=== PATIENT | female | born 1975 | race Caucasian/White ===

== ENCOUNTER 2022-05-21 11:57 | Emergency (ER) | payer SELFPAY ==
[2022-05-21] VITALS (16 sets, daily range): BP systolic 117–141; BP diastolic 69–100; PULSE 60–79; RESP 26; TEMP 36.9; O2SAT 96–99; BMI 48.1
--- NOTE | 2022-05-21 12:40 | CRLHL7_ITS ---
For Patients: As a result of the Cures Act, medical imaging exams and procedure reports are released immediately into your electronic medical record. You may view this report before your referring provider. If you have questions, please contact your health care provider. INDICATION: Cough. COMPARISON: Chest x-ray 09/04/2019. TECHNIQUE: Upright PA and lateral views. FINDINGS: The cardiomediastinal silhouette and pulmonary vasculature are within normal limits. The lungs are clear. No pleural effusion or pneumothorax is identified. There are mild degenerative changes throughout the thoracic spine. IMPRESSION: No acute abnormality. Dictated by Toy Mancera MD @ 05/21/2022 2:13:13 PM (Electronically Signed)
--- NOTE | 2022-05-21 12:41 | ED_ITS ---
HPI - General Adult General Chief complaint: Cough Stated complaint: coughing blood Time Seen by Provider: 05/21/22 11:59 History of Present Illness HPI narrative: This 47-year-old female comes in reporting 3 weeks of cough. More recently she has noted some blood mixed in with the sputum when she is coughing. She does not report any fevers. She does arrive with normal vital signs except for increased respiratory rate at around 26 breaths per minute. She is maintaining sufficient oximetry. She did see a doctor a couple weeks ago and was told that she had a pneumonia. She received Zithromax and did not get any relief from this treatment. There was no chest x-ray that was done. Related Data Previous Rx's Medication Instructions Recorded albuterol sulfate 90 mcg/actuation 2 inh inhalation Q4-6H PRN #1 ea 05/21/22 breath activated powder inhaler Allergies Allergy/AdvReac Type Severity Reaction Status Date / Time No Known Drug Allergies Allergy Verified 05/21/22 12:11 Review of Systems Status of ROS: Reports: 10 or more systems reviewed and unremarkable except as noted in History and below Narrative: Constitutional: No fevers, no weight gain or loss. Eyes: No discharge. No vision changes. HENT: No congestion, no sore throat, no ear pain. Cardiovascular: No chest pain, no palpitations. Respiratory: Frequent productive cough sometimes with specks of blood. Gastrointestinal: No abdominal pain, no vomiting, no diarrhea. Genitourinary: No dysuria, no hematuria. Musculoskeletal: Normal range of motion. Skin: No rashes, no pruritis. Neurological: No dizziness, weakness, sensory change, speech change. Endo/Heme/Allergies: No bruising or bleeding. No polydipsia. Pysch: no suicidality, no anxiety, no insomnia. All other systems reviewed and are negative. PFSH PFSH Social History Smoking Status: Never smoker Do you use any of these nicotine containing products: None Second hand tobacco smoke exposure: No How often do you have a drink containing alcohol: monthly or less How many standard drinks containing alcohol do you have on a typical day: 1 or 2 How often do you have six or more drinks on one occasion: Never AUDIT-C Alcohol total score: 1 Non-prescribed substance use: denies use service: No Exam Narrative: Exam Narrative: Constitutional: Well-developed, well-nourished, no acute distress. HEENT: Normocephalic, atraumatic. Neck: Normal range of motion. Nontender. Supple. Heart: Regular. No murmurs. Normal rate. Intact distal pulses. Lungs: Some chest discomfort when coughing. Wheezes are heard on the right side of the lung. Abdomen: Normal bowel sounds. Nontender. No rebound tenderness. Genitalia: Deferred. Back: No midline tenderness. Normal range of motion. Extremities: Normal range of motion. No injury. Skin: Intact. No rash. Warm. No erythema or pallor. Neurologic: No altered sensation. No weakness. Alert and oriented. Psychiatric: No suicidality. No anxiety or depression. No insomnia. Nursing notes and vitals signs are reviewed. Const: Vital Signs, click to edit/add: Vital Signs - 24 hr 05/21/22 12:11 05/21/22 12:12 05/21/22 12:15 Temperature 98.4 F Pulse Rate 79 77 Pulse Rate [Pulse Oximeter] 71 Respiratory Rate 26 H Blood Pressure Blood Pressure [Ri ght Upper Arm] 141/88 H Pulse Oximetry 98 99 97 Oxygen Delivery Me thod Room Air 05/21/22 12:16 Temperature Pulse Rate 72 Pulse Rate [Pulse Oximeter] Respiratory Rate Blood Pressure 141/88 H Blood Pressure [Ri ght Upper Arm] Pulse Oximetry 97 Oxygen Delivery Me thod Course Vital Signs Vital signs: Initial Vital Signs Temperature 98.4 F 05/21/22 12:11 Temperature Source Temporal Artery Scan 05/21/22 12:11 Pulse Rate 71 05/21/22 12:11 Pulse Rhythm Regular 05/21/22 12:11 Respiratory Rate 26 H 05/21/22 12:11 Blood Pressure 141/88 H 05/21/22 12:11 Blood Pressure Mean 105 05/21/22 12:11 Blood Pressure Position Supine 05/21/22 12:11 Pulse Oximetry 98 05/21/22 12:11 Oxygen Delivery Method Room Air 05/21/22 12:11 Vital Signs Temperature 98.4 F 05/21/22 12:11 Pulse Rate 71 05/21/22 12:11 Respiratory Rate 26 H 05/21/22 12:11 Blood Pressure 141/88 H 05/21/22 12:11 Pulse Oximetry 98 05/21/22 12:11 Oxygen Delivery Method Room Air 05/21/22 12:11 Temperature 98.4 F 05/21/22 12:11 Pulse Rate 72 05/21/22 12:16 Respiratory Rate 26 H 05/21/22 12:11 Blood Pressure 141/88 H 05/21/22 12:16 Pulse Oximetry 97 05/21/22 12:16 Oxygen Delivery Method Room Air 05/21/22 12:11 Medical Decision Making MDM Narrative Medical decision making narrative: This patient comes in reporting cough and shortness of breath. She did have some wheezing initially on exam. She did receive an oral dose of dexamethasone 10 mg. Upon reexamination the wheezing has discontinued. She states that she is feeling better. Chest x-ray by my review shows no sign of pneumonia. Lab results also returned with normal findings. Her nasal swab is negative for COVID, influenza, and RSV. At the time of discharge the patient appears safe for outpatient management. The treatment plan is reviewed along with written and verbal return precautions. Reasons to return and the importance of close followup were also reviewed. She did receive a prescription for albuterol inhaler. Encouraged use of [id number] medicines also as needed and directed. Lab Data Labs: Lab Results 05/21/22 05/21/22 Range/Units 12:02 13:09 WBC 6.71 (4.50-11.00) K/uL RBC 4.51 (4.00-5.20) m/uL Hgb 13.4 (12.0-16.0) gm/dL Hct 39.7 (33.0-51.0) % MCV 88 (80-100) fL MCH 30 (26-34) pg MCHC 34 (32-36) gm/dL RDW Coeff of Hina 13.4 (11.5-15.5) % Plt Count 286 (140-440) K/uL Neut % (Auto) 54.9 (42.0-72.0) % Lymph % (Auto) 35.2 (20-44) % [place] % (Auto) 6.6 (0.0-11.0) % Eos % (Auto) 2.5 (0.0-7.0) % Baso % (Auto) 0.4 (0.0-3.0) % Neut # (Auto) 3.68 (1.7-7.0) K/uL Lymph # (Auto) 2.36 (0.90-2.90) K/uL [place] # (Auto) 0.40 (0.00-0.90) K/UL Eos # (Auto) 0.17 (0.00-0.50) K/uL Baso # (Auto) 0.03 (0.00-0.30) K/uL Sodium 140 (135-149) mmol/L Potassium 3.9 (3.6-5.1) mmol/L Chloride 109 (96-114) mmol/L Carbon Dioxide 26 (20-32) mmol/L BUN 15 (5-24) mg/dL Creatinine 0.4 L (0.5-1.5) mg/dL Estimated Creat Clear 148.53 Estimated GFR 122 ml/min Glucose 109 (60-115) mg/dL Calcium 8.6 (8.4-10.6) mg/dL SARS-CoV-2 (PCR) Negative SARS-CoV-2 (Negative) Influenza Type A (PCR) Negative PCR FLU A (Negative) Influenza Type B (PCR) Negative PCR FLU B (Negative) RSV (PCR) Negative PCR RSV (Negative) Discharge Plan Discharge Clinical Impression: Acute upper respiratory infection Patient Disposition: Home, Self-Care Condition: Improved Additional Instructions: Take medication as needed and directed. Follow up with MD or return if worsening. Prescriptions: New albuterol sulfate 90 mcg/actuation aerosol powdr breath activated 2 inh inhalation Q4-6H PRNQty: 1 0RF Follow Up/Referrals: Provider,Not a Local [Primary Care Provider] - Stand Alone Forms: [employer] Info Instructions
[2022-05-21 12:59] LABS: PCR FLU A Negative PCR FLU A (Negative); PCR FLU B Negative PCR FLU B (Negative); PCR RSV Negative PCR RSV (Negative)
[2022-05-21] MEDS: dexAMETHasone 10 MG/ML inj PO (12:59)
[2022-05-21 13:19] LABS: SARS PCR* Negative SARS-CoV-2 (Negative)
[2022-05-21 13:19] LABS: Basophils Absolute Auto 0.03 K/uL (0.00-0.30); Basophils Percent Auto 0.4 % (0.0-3.0); Eosinophils Absolute Auto 0.17 K/uL (0.00-0.50); Eosinophils Percent Auto 2.5 % (0.0-7.0); Hematocrit 39.7 % (33.0-51.0); Hemoglobin* 13.4 gm/dL (12.0-16.0); Immature Granulocytes Abs Auto 0.03 K/uL (0.00-0.30); Immature Granulocytes Pct Auto 0.4 %; Lymphocytes Absolute Auto 2.36 K/uL (0.90-2.90); Lymphocytes Percent Auto 35.2 % (20-44); Mean Corpuscular HGB Conc 34 gm/dL (32-36); Mean Corpuscular Hemoglobin 30 pg (26-34); Mean Corpuscular Volume 88 fL (80-100); Monocytes Percent Auto 6.6 % (0.0-11.0); Neutrophils Absolute Auto 3.68 K/uL (1.7-7.0); Neutrophils Percent Auto 54.9 % (42.0-72.0); Platelet Count* 286 K/uL (140-440); RDW Coefficient of Variation % 13.4 % (11.5-15.5); Red Blood Count 4.51 m/uL (4.00-5.20); White Blood Count* 6.71 K/uL (4.50-11.00)
[2022-05-21 13:28] LABS: Chloride* 109 mmol/L (96-114)
[2022-05-21 13:29] LABS: Potassium* 3.9 mmol/L (3.6-5.1); Sodium* 140 mmol/L (135-149)
[2022-05-21 13:31] LABS: Creatinine* 0.4 mg/dL (0.5-1.5); Est. Creatinine Clearance* 148.53; Estimated Glomerular Filt Rate 122 ml/min
[2022-05-21 13:32] LABS: Blood Urea Nitrogen* 15 mg/dL (5-24); Calcium* 8.6 mg/dL (8.4-10.6); Carbon Dioxide* 26 mmol/L (20-32); Glucose* 109 mg/dL (60-115)
[2022-05-21 13:36] LABS: Slide Review Reflex No
== END 2022-05-21 14:32 | disposition home or self-care (01) ==
PROVIDERS: Emergency Provider Emergency Medicine Emergency Medical Services
DX: J06.9 Acute upper respiratory infection, unspecified (principal)
CPT/HCPCS: 36415; 71046; 80048; 85025; 87631; 99283; 99284; J1100

== ENCOUNTER 2022-06-15 16:58 | Emergency (ER) | payer SELFPAY ==
[2022-06-15 17:12] VITALS: BP 156/90; PULSE 90; RESP 18; TEMP 36.3; O2SAT 98; BMI 44.6
--- NOTE | 2022-06-15 17:27 | ED.EAR ---
HPI - Ear Problem General Chief complaint: Sore Throat Stated complaint: Throat feels swollen, cough Time Seen by Provider: 06/15/22 17:06 History of Present Illness HPI Narrative: Patient is a 47-year-old woman up-to-date on her vaccinations who comes in today with bilateral ear pain and pharyngitis. She has had no fevers no chills no night sweats. She is saturating 98% on room air. She has had no sick contacts. She has been taking Tylenol Motrin as needed for pain. The symptoms been present the last 3-4 days. His no difficulty with breathing or airway issues. Patient declines strep swab. Her vital signs show elevated blood pressure. Related Data Previous Rx's Medication Instructions Recorded albuterol sulfate 90 mcg/actuation 2 inh inhalation Q4-6H PRN #1 ea 05/21/22 breath activated powder inhaler Allergies Allergy/AdvReac Type Severity Reaction Status Date / Time No Known Drug Allergies Allergy Verified 06/15/22 17:12 Review of Systems Status of ROS: Reports: 10 or more systems reviewed and unremarkable except as noted in History and below PFSH PFSH Social History Smoking Status: Never smoker Do you use any of these nicotine containing products: None Second hand tobacco smoke exposure: No How often do you have a drink containing alcohol: monthly or less How many standard drinks containing alcohol do you have on a typical day: 1 or 2 How often do you have six or more drinks on one occasion: Never AUDIT-C Alcohol total score: 1 Non-prescribed substance use: denies use service: No Exam Narrative: Exam Narrative: EXAM GENERAL: Patient appears comfortable and well. EYES: No scleral icterus. ENT: Bilateral serous otitis media noted on exam. Pharyngeal erythema with no midline shift noted tonsillar enlargement noted. THYROID: no thyroid nodules or thyromegaly. LYMPH: No supraclavicular or cervical lymphadenopathy. SKIN: Visible skin seen during exam normal or with benign process only. EXT: No dependent lower extremity pedal edema. HEART: Regular rate and rhythm with no murmurs, rubs, or gallops. LUNGS: Clear to auscultation bilaterally with no crackles or wheezes. ABD: Soft, non tender, non distended. PSYCH: Good eye contact, speech is not pressured. Const: Vital Signs, click to edit/add: Vital Signs - 24 hr 06/15/22 17:12 Temperature 97.3 F L Pulse Rate [Pulse Oximeter] 90 Respiratory Rate 18 Blood Pressure [Ri ght Upper Arm] 156/90 H Pulse Oximetry 98 Oxygen Delivery Me thod Room Air Course Course Hospital Course: Patient seen examined. Vital Signs Vital signs: Initial Vital Signs Temperature 97.3 F L 06/15/22 17:12 Temperature Source Temporal Artery Scan 06/15/22 17:12 Pulse Rate 90 06/15/22 17:12 Respiratory Rate 18 06/15/22 17:12 Blood Pressure 156/90 H 06/15/22 17:12 Blood Pressure Mean 112 H 06/15/22 17:12 Pulse Oximetry 98 06/15/22 17:12 Oxygen Delivery Method Room Air 06/15/22 17:12 Vital Signs Temperature 97.3 F L 06/15/22 17:12 Pulse Rate 90 06/15/22 17:12 Respiratory Rate 18 06/15/22 17:12 Blood Pressure 156/90 H 06/15/22 17:12 Pulse Oximetry 98 06/15/22 17:12 Oxygen Delivery Method Room Air 06/15/22 17:12 Temperature 97.3 F L 06/15/22 17:12 Pulse Rate 90 06/15/22 17:12 Respiratory Rate 18 06/15/22 17:12 Blood Pressure 156/90 H 06/15/22 17:12 Pulse Oximetry 98 06/15/22 17:12 Oxygen Delivery Method Room Air 06/15/22 17:12 Medical Decision Making MDM Narrative Medical decision making narrative: Patient is a 47-year-old woman who presents with ear pain and pharyngitis. She has obvious otitis media serous on exam. Her oropharyngeal exam shows tonsillar enlargement without shift of the midline. She has no difficulty with breathing. Rest of her exam is unremarkable. She declines rapid strep. I do think that is reasonable given her presentation this time will treat with Augmentin for the next 10 days Tylenol Motrin rest and fluids with close outpatient follow-up. Differential Diagnosis Differential Diagnosis: Otitis media strep throat peritonsillar abscess sinusitis otitis externa Discharge Plan Discharge Clinical Impression: Otitis media Patient Disposition: Home, Self-Care Condition: Stable Instructions: Ear Infection (ED) Additional Instructions: Augmentin as directed Tylenol Motrin Rest Fluids Activity Level: No Restrictions Discharge Diet: Regular Prescriptions: No Action albuterol sulfate 90 mcg/actuation aerosol powdr breath activated 2 inh inhalation Q4-6H PRNQty: 1 0RF Follow Up/Referrals: Provider,Not a Local [Primary Care Provider] - Stand Alone Forms: [facility] Info Instructions
== END 2022-06-15 18:07 | disposition home or self-care (01) ==
PROVIDERS: Emergency Provider Internal Medicine
DX: H66.93 Otitis media, unspecified, bilateral (principal)
CPT/HCPCS: 99283

== ENCOUNTER 2023-09-30 13:55 | Emergency (ER) | payer OTHER, SELFPAY ==
[2023-09-30 14:03] VITALS: BP 129/70; PULSE 73; RESP 18; TEMP 36.4; O2SAT 96
--- NOTE | 2023-09-30 14:13 | ED.GENADULT ---
HPI - General Adult General Chief complaint: Fall/Minor Trauma <Rich Barnhart MD - Last Filed: 08/11/24 09:43> Stated complaint: fell, hit head and ribs <Rich Barnhart MD - Last Filed: 08/11/24 09:43> Time Seen by Provider: 09/30/23 14:01 <Rich Barnhart MD - Last Filed: 08/11/24 09:43> History of Present Illness HPI narrative: Patient fell on Thursday while standing on tub side cleaning. Struck left side of head and left side of body. Complains of left sided rib pain and some pain in left head. 48-year-old woman presenting to the emergency department <Rich Barnhart MD - Last Filed: 08/11/24 09:43> Related Data Home medications: Previous Rx's ?Medication ?Instructions ?Recorded celecoxib 100 mg capsule 200 mg (2 x 100 mg) PO QDAY #60 02/15/24 caps celecoxib 100 mg capsule (Celebrex) 200 mg (2 x 100 mg) PO BID #60 caps 05/10/24 <Rich Barnhart MD - Last Filed: 08/11/24 09:43> Allergies/adverse reactions: Allergies Allergy/AdvReac Type Severity Reaction Status Date / Time No Known Drug Allergies Allergy Verified 03/01/24 09:15 <Rich Barnhart MD - Last Filed: 08/11/24 09:43> [facility] Surgical History: Surgical History (Updated 02/26/24 @ 10:03 by Lola Hurtado) History of section ?Z98.891 - History of uterine scar from previous surgery (ICD-10) History of bladder surgery ?Z98.890 - Other specified postprocedural states (ICD-10) Hx of appendectomy ?Z90.49 - Acquired absence of other specified parts of digestive tract (ICD-10) Hx of tonsillectomy ?Z90.89 - Acquired absence of other organs (ICD-10) <Rich Barnhart MD - Last Filed: 08/11/24 09:43> Social History: Social History Smoking Status: Never smoker Do you use any of these nicotine containing products: None Second hand tobacco smoke exposure: No How often do you have a drink containing alcohol: monthly or less How many standard drinks containing alcohol do you have on a typical day: 1 or 2 How often do you have six or more drinks on one occasion: Never AUDIT-C Alcohol total score: 1 Non-prescribed substance use: denies use service: No <Rich Barnhart MD - Last Filed: 08/11/24 09:43> Exam Const: Vital Signs, click to edit/add: Vital Signs - 24 hr 09/30/23 14:03 Temperature 97.6 F Pulse Rate [Pulse Oximeter] 73 Respiratory Rate 18 Blood Pressure [Ri ght Upper Arm] 129/70 Pulse Oximetry 96 <Rich Barnhart MD - Last Filed: 08/11/24 09:43> Vital Signs, click to edit/add: Vital Signs - 24 hr 09/30/23 14:03 Temperature 97.6 F Pulse Rate [Pulse Oximeter] 73 Respiratory Rate 18 Blood Pressure [Ri ght Upper Arm] 129/70 Pulse Oximetry 96 <Mari Crespo MD - Last Filed: 09/30/23 17:13> Course Course ED Course: As as to follow-up on the imaging of this patient. Head, cervical spine, chest abdomen pelvis CTs were unremarkable. <Mari Crespo MD - Last Filed: 09/30/23 17:13> Vital Signs Vital signs: Initial Vital Signs Temperature 97.6 F 09/30/23 14:03 Temperature Source Temporal Artery Scan 09/30/23 14:03 Pulse Rate 73 09/30/23 14:03 Respiratory Rate 18 09/30/23 14:03 Blood Pressure 129/70 09/30/23 14:03 Blood Pressure Mean 89 09/30/23 14:03 Pulse Oximetry 96 09/30/23 14:03 Vital Signs Temperature 97.6 F 09/30/23 14:03 Pulse Rate 73 09/30/23 14:03 Respiratory Rate 18 09/30/23 14:03 Blood Pressure 129/70 09/30/23 14:03 Pulse Oximetry 96 09/30/23 14:03 Temperature 97.6 F 09/30/23 14:03 Pulse Rate 73 09/30/23 14:03 Respiratory Rate 18 09/30/23 14:03 Blood Pressure 129/70 09/30/23 14:03 Pulse Oximetry 96 09/30/23 14:03 <Rich Barnhart MD - Last Filed: 08/11/24 09:43> Initial Vital Signs Temperature 97.6 F 09/30/23 14:03 Temperature Source Temporal Artery Scan 09/30/23 14:03 Pulse Rate 73 09/30/23 14:03 Respiratory Rate 18 09/30/23 14:03 Blood Pressure 129/70 09/30/23 14:03 Blood Pressure Mean 89 09/30/23 14:03 Pulse Oximetry 96 09/30/23 14:03 Vital Signs Temperature 97.6 F 09/30/23 14:03 Pulse Rate 73 09/30/23 14:03 Respiratory Rate 18 09/30/23 14:03 Blood Pressure 129/70 09/30/23 14:03 Pulse Oximetry 96 09/30/23 14:03 Temperature 97.6 F 09/30/23 14:03 Pulse Rate 73 09/30/23 14:03 Respiratory Rate 18 09/30/23 14:03 Blood Pressure 129/70 09/30/23 14:03 Pulse Oximetry 96 09/30/23 14:03 <Mari Crespo MD - Last Filed: 09/30/23 17:13> Medications Administered Medications: Discontinued Medications Generic Name Dose Route Start Last Admin Trade Name Freq PRN Reason Stop Dose Admin Morphine Sulfate 4 mg 09/30/23 14:30 09/30/23 15:15 Morphine 4 Mg/Ml Inj IVP 09/30/23 14:31 4 mg ONCE ONE Administration <Rich Barnhart MD - Last Filed: 08/11/24 09:43> Discontinued Medications Generic Name Dose Route Start Last Admin Trade Name Freq PRN Reason Stop Dose Admin Morphine Sulfate 4 mg 09/30/23 14:30 09/30/23 15:15 Morphine 4 Mg/Ml Inj IVP 09/30/23 14:31 4 mg ONCE ONE Administration <Mari Crespo MD - Last Filed: 09/30/23 17:13> Medical Decision Making Lab Data Labs: Lab Results 09/30/23 Range/Units 15:05 WBC 8.32 (4.50-11.00) K/uL RBC 4.24 (4.00-5.20) m/uL Hgb 12.6 (12.0-16.0) gm/dL Hct 38.6 (33.0-51.0) % MCV 91 (80-100) fL MCH 30 (26-34) pg MCHC 33 (32-36) gm/dL RDW Coeff of Hina 13.8 (11.5-15.5) % Plt Count 266 (140-440) K/uL Neut % (Auto) 65.2 (42.0-72.0) % Lymph % (Auto) 26.2 (20-44) % [place] % (Auto) 6.1 (0.0-11.0) % Eos % (Auto) 1.9 (0.0-7.0) % Baso % (Auto) 0.2 (0.0-3.0) % Neut # (Auto) 5.42 (1.7-7.0) K/uL Lymph # (Auto) 2.18 (0.90-2.90) K/uL [place] # (Auto) 0.50 (0.00-0.90) K/UL Eos # (Auto) 0.16 (0.00-0.50) K/uL Baso # (Auto) 0.02 (0.00-0.30) K/uL Abs Immat Gran (auto) 0.03 (0.00-0.30) K/uL Imm/Tot Granulo (auto) 0.4 % Sodium 139 (135-149) mmol/L Potassium 3.8 (3.6-5.1) mmol/L Chloride 106 (96-114) mmol/L Carbon Dioxide 27 (20-32) mmol/L Anion Gap 6 L (7-15) mEq/L BUN 14 (5-24) mg/dL Creatinine 0.4 L (0.5-1.5) mg/dL Estimated GFR 121 ml/min Glucose 149 H (60-115) mg/dL Calcium 8.8 (8.4-10.6) mg/dL Total Bilirubin 0.5 (0.1-1.5) mg/dL AST 49 H (12-35) U/L ALT 64 H (4-35) U/L Alkaline Phosphatase 74 (40-150) U/L Total Protein 6.6 (6.0-8.3) g/dL Albumin 4.0 (3.3-5.0) g/dL HCG, Qual Negative (Negative) <Rich Barnhart MD - Last Filed: 08/11/24 09:43> Lab Results 09/30/23 Range/Units 15:05 WBC 8.32 (4.50-11.00) K/uL RBC 4.24 (4.00-5.20) m/uL Hgb 12.6 (12.0-16.0) gm/dL Hct 38.6 (33.0-51.0) % MCV 91 (80-100) fL MCH 30 (26-34) pg MCHC 33 (32-36) gm/dL RDW Coeff of Hina 13.8 (11.5-15.5) % Plt Count 266 (140-440) K/uL Neut % (Auto) 65.2 (42.0-72.0) % Lymph % (Auto) 26.2 (20-44) % [place] % (Auto) 6.1 (0.0-11.0) % Eos % (Auto) 1.9 (0.0-7.0) % Baso % (Auto) 0.2 (0.0-3.0) % Neut # (Auto) 5.42 (1.7-7.0) K/uL Lymph # (Auto) 2.18 (0.90-2.90) K/uL [place] # (Auto) 0.50 (0.00-0.90) K/UL Eos # (Auto) 0.16 (0.00-0.50) K/uL Baso # (Auto) 0.02 (0.00-0.30) K/uL Abs Immat Gran (auto) 0.03 (0.00-0.30) K/uL Imm/Tot Granulo (auto) 0.4 % Sodium 139 (135-149) mmol/L Potassium 3.8 (3.6-5.1) mmol/L Chloride 106 (96-114) mmol/L Carbon Dioxide 27 (20-32) mmol/L Anion Gap 6 L (7-15) mEq/L BUN 14 (5-24) mg/dL Creatinine 0.4 L (0.5-1.5) mg/dL Estimated GFR 121 ml/min Glucose 149 H (60-115) mg/dL Calcium 8.8 (8.4-10.6) mg/dL Total Bilirubin 0.5 (0.1-1.5) mg/dL AST 49 H (12-35) U/L ALT 64 H (4-35) U/L Alkaline Phosphatase 74 (40-150) U/L Total Protein 6.6 (6.0-8.3) g/dL Albumin 4.0 (3.3-5.0) g/dL HCG, Qual Negative (Negative) <Mari Crsepo MD - Last Filed: 09/30/23 17:13> Imaging Data CT- Other: Attestation: I have reviewed the pertinent imaging results. <Mari Crespo MD - Last Filed: 09/30/23 17:13> Radiologist's impression: Noncontrast axial CT of the cervical spine with coronal and sagittal reformats are provided. Comparison: No prior studies available for comparison at this institution. Findings: The overall stature, alignment of the cervical spine is within normal limits. No fractures. No significant spinal canal stenosis or neural foraminal narrowing. Prevertebral soft tissues, cervical airway, dens and lateral masses are within normal limits. Incidental ossifications noted in the nuchal ligament at the C5 and C6 levels. Moderate opacification of the right mastoid air cells and middle ear canal. Impression: No radiographic evidence of acute osseous injury. <Mari Crespo MD - Last Filed: 09/30/23 17:13> CT scan - head: Attestation: I have reviewed the pertinent imaging results. <Mari Crespo MD - Last Filed: 09/30/23 17:13> Radiologist's impression: CT of the head without contrast. Coronal and sagittal reformats. Bone and soft tissue windows. Comparison: 09/04/2019 Findings: No acute intracranial hemorrhage or extra-axial collection. No evidence of acute cortical infarction. No mass effect or midline shift. Normal cerebral volume. The ventricles are normal in size, shape and contour. There is normal carty and white matter differentiation. Partially empty sella. The orbital contents are normal. No calvarial fractures. No lytic or sclerotic osseous lesions within the calvarium or skull base. Scalp and other imaged soft tissue structures are normal. Moderate opacification of the right mastoid air cells and right middle ear cavity. Paranasal sinuses are well aerated. Impression: 1. No acute intracranial abnormality. 2. Partially empty sella may represent a normal variant but can also be associated with idiopathic intracranial hypertension in the appropriate clinical setting. 3. Moderate opacification of the right mastoid air cells and right middle ear cavity. <Mari Crespo MD - Last Filed: 09/30/23 17:13> CT Chest/Ab/Pelvis: Attestation: I have reviewed the pertinent imaging results. <Mari Crespo MD - Last Filed: 09/30/23 17:13> Radiologist's impression: CT chest, abdomen and pelvis acquired with 95 cc of Isovue 370 IV contrast. COMPARISON: CT abdomen and pelvis with contrast 12/16/2022. FINDINGS: CHEST: Cardiovascular structures: Thoracic aorta and main pulmonary arteries are normal in caliber. Heart size is within normal limits. Mediastinum and fan: No pathologic lymphadenopathy. Lungs: No pneumothorax. Central airways are patent. Mild bibasilar scarring and atelectasis. Lungs are otherwise clear. Pleura and pericardium: No effusions. Chest wall and axilla: Unremarkable. ABDOMEN AND PELVIS: Liver: Unremarkable. Spleen: Unremarkable. Pancreas: Unremarkable. Gallbladder and bile ducts: Cholecystectomy. No biliary ductal dilatation. Kidneys: Unremarkable. Adrenal glands: Unremarkable. GI tract: No obstruction or focal inflammatory changes. Stable interparietal type fat and large bowel containing left abdominal wall hernia (axial image 114 of series 6). No free air or free fluid. Lymph nodes: No pathologic lymphadenopathy. Vascular structures: Unremarkable. Pelvic Organs: Unremarkable. Bones: No acute or suspicious osseous abnormality. IMPRESSION: No acute abnormality in the chest, abdomen or pelvis. <Mari Crespo MD - Last Filed: 09/30/23 17:13> Discharge Plan Discharge Clinical Impression: Fall, Left-sided chest wall pain <Rich Barnhart MD - Last Filed: 08/11/24 09:43> Patient Disposition: Home, Self-Care <Rich Barnhart MD - Last Filed: 08/11/24 09:43> Condition: Improved <Rich Barnhart MD - Last Filed: 08/11/24 09:43> Additional Instructions: Head, cervical spine and chest, abdomen and pelvis CT scan today were all unremarkable. No evidence of fractures noted. Take the oxycodone and Toradol for pain. You can also use Tylenol. Do not take ibuprofen or Aleve or any other NSAIDs while your taking the Toradol as the other same class of drugs. Return to emergency department for new worsening symptoms. <Rich Barnhart MD - Last Filed: 08/11/24 09:43> Prescriptions: No Action celecoxib 100 mg capsule 200 mg PO QDAY Qty: 60 5RF celecoxib [Celebrex] 100 mg capsule 200 mg PO BID Qty: 60 2RF <Rich Barnhart MD - Last Filed: 08/11/24 09:43> Follow Up/Referrals: Provider,Not a Local [Primary Care Provider] <Rich Barnhart MD - Last Filed: 08/11/24 09:43> Stand Alone Forms: [facility] Info Inst[facility] <Rich Barnhart MD - Last Filed: 08/11/24 09:43>
--- NOTE | 2023-09-30 14:30 | CRLHL7_ITS ---
For Patients: As a result of the Century Cures Act, medical imaging exams and procedure reports are released immediately into your electronic medical record. You may view this report before your referring provider. If you have questions, please contact your health care provider. INDICATION: Fall. Hit head and neck. Rib pain. TECHNIQUE: CT chest, abdomen and pelvis acquired with 95 cc of Isovue 370 IV contrast. COMPARISON: CT abdomen and pelvis with contrast 12/16/2022. FINDINGS: CHEST: Cardiovascular structures: Thoracic aorta and main pulmonary arteries are normal in caliber. Heart size is within normal limits. Mediastinum and fan: No pathologic lymphadenopathy. Lungs: No pneumothorax. Central airways are patent. Mild bibasilar scarring and atelectasis. Lungs are otherwise clear. Pleura and pericardium: No effusions. Chest wall and axilla: Unremarkable. ABDOMEN AND PELVIS: Liver: Unremarkable. Spleen: Unremarkable. Pancreas: Unremarkable. Gallbladder and bile ducts: Cholecystectomy. No biliary ductal dilatation. Kidneys: Unremarkable. Adrenal glands: Unremarkable. GI tract: No obstruction or focal inflammatory changes. Stable interparietal type fat and large bowel containing left abdominal wall hernia (axial image 114 of series 6). No free air or free fluid. Lymph nodes: No pathologic lymphadenopathy. Vascular structures: Unremarkable. Pelvic Organs: Unremarkable. Bones: No acute or suspicious osseous abnormality. IMPRESSION: No acute abnormality in the chest, abdomen or pelvis. Dictated by Michael Blackmon MD @ 09/30/2023 5:01:46 PM Please note that all CT scans at this facility use dose modulation, iterative reconstruction, and/or weight-based dosing when appropriate to reduce radiation dose to as low as reasonably achievable. Dictated by: Michael Blackmon MD @ 09/30/2023 17:02:01 (Electronically Signed)
--- NOTE | 2023-09-30 14:30 | ED.FALL ---
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 Two days ago she was standing on the edge of the bathtub trying clean some stuff on the ceiling when she tripped and fell landing on her left side onto the bathtub edge. She also states she hit her head against the ground. Since then she has been severe left-sided pain. She has taken ibuprofen at home with no improvement in symptoms. Denies any nausea, fevers, chills, lightheadedness, dizziness, weakness, numbness, chest pain, shortness of breath. Most the pain is in the left lower ribs but she does have pain throughout the left side of her ribs. Also is painful left upper quadrant. Denies any neck pain at this time. No other concerns noted. Related Data Previous Rx's ?Medication ?Instructions ?Recorded albuterol sulfate 90 mcg/actuation 2 inh inhalation Q4-6H PRN #1 ea 05/21/22 breath activated powder inhaler ketorolac 10 mg tablet 10 mg PO Q6H PRN pain #20 tabs 09/30/23 oxycodone 5 mg tablet 5 mg PO Q6H PRN pain #12 tabs 09/30/23 Allergies Allergy/AdvReac Type Severity Reaction Status Date / Time No Known Drug Allergies Allergy Verified 12/16/22 11:18 Review of Systems Status of ROS: Reports: 10 or more systems reviewed and unremarkable except as noted in History and below PFSH PFS Social History Smoking Status: Never smoker Do you use any of these nicotine containing products: None Second hand tobacco smoke exposure: No How often do you have a drink containing alcohol: monthly or less How many standard drinks containing alcohol do you have on a typical day: 1 or 2 How often do you have six or more drinks on one occasion: Never AUDIT-C Alcohol total score: 1 Non-prescribed substance use: denies use service: No Exam Narrative: Exam Narrative: Const: Well-nourished, Well-developed, in moderate distress Eyes: PERRL, no conjunctival injection, and symmetrical lids HENT: Atraumatic external nose and ears. Moist mucous membranes. Neck: Symmetric, trachea midline, No thyromegaly. CVS: RRR, No murmurs or gallops. Peripheral pulses 2+ and equal in all extremities RESP: Unlabored respiratory effort. Clear to auscultation bilaterally. GI: Left upper quadrant tenderness, Nondistended, No rebound. MSK:Extremities w/o deformity, Normal Active ROM, tenderness palpation left side of her ribs anterior and laterally but worse than the left lower ribs. No tenderness to her back or posterior ribs Skin: Warm, Dry. No rashes or lesions. Neuro: Normal Muscle tone, No focal neurological deficits. Psych: Awake, Alert, & Oriented x3. Appropriate mood and affect. Const: Vital Signs, click to edit/add: Vital Signs - 24 hr 09/30/23 14:03 Temperature 97.6 F Pulse Rate [Pulse Oximeter] 73 Respiratory Rate 18 Blood Pressure [Ri t Upper Arm] 129/70 Pulse Oximetry 96 Course Vital Signs Vital signs: Initial Vital Signs Temperature 97.6 F 09/30/23 14:03 Temperature Source Temporal Artery Scan 09/30/23 14:03 Pulse Rate 73 09/30/23 14:03 Respiratory Rate 18 09/30/23 14:03 Blood Pressure 129/70 09/30/23 14:03 Blood Pressure Mean 89 09/30/23 14:03 Pulse Oximetry 96 09/30/23 14:03 Vital Signs Temperature 97.6 F 09/30/23 14:03 Pulse Rate 73 09/30/23 14:03 Respiratory Rate 18 09/30/23 14:03 Blood Pressure 129/70 09/30/23 14:03 Pulse Oximetry 96 09/30/23 14:03 Temperature 97.6 F 09/30/23 14:03 Pulse Rate 73 09/30/23 14:03 Respiratory Rate 18 09/30/23 14:03 Blood Pressure 129/70 09/30/23 14:03 Pulse Oximetry 96 09/30/23 14:03 Medications Administered Medications: Discontinued Medications Generic Name Dose Route Start Last Admin Trade Name Freq PRN Reason Stop Dose Admin Morphine Sulfate 4 mg 09/30/23 14:30 09/30/23 15:15 Morphine 4 Mg/Ml Inj IVP 09/30/23 14:31 4 mg ONCE ONE Administration MDM - Fall MDM Narrative Medical decision making narrative: Patient is a 48-year-old female presenting for left-sided chest and abdominal pain. She is very tender to palpation at this time. Considering his left upper quadrant pain there is some concern for splenic laceration so I will order a CT scan of the chest abdomen and pelvis with IV contrast. This also look for any intrathoracic abnormalities and any rib fractures. She also states she hit her head so I will order a head CT and cervical spine CT. CBC, CMP, test all ordered. Morphine given for pain. Patient's CBC and CMP showed no concerning abnormalities. AST and ALT are slightly elevated. We are pending the CT scans at this time and patient will be signed out to my colleague Dr. Crespo for final disposition. Lab Data Labs: Lab Results 09/30/23 Range/Units 15:05 WBC 8.32 (4.50-11.00) K/uL RBC 4.24 (4.00-5.20) m/uL Hgb 12.6 (12.0-16.0) gm/dL Hct 38.6 (33.0-51.0) % MCV 91 (80-100) fL MCH 30 (26-34) pg MCHC 33 (32-36) gm/dL RDW Coeff of Hina 13.8 (11.5-15.5) % Plt Count 266 (140-440) K/uL Neut % (Auto) 65.2 (42.0-72.0) % Lymph % (Auto) 26.2 (20-44) % [place] % (Auto) 6.1 (0.0-11.0) % Eos % (Auto) 1.9 (0.0-7.0) % Baso % (Auto) 0.2 (0.0-3.0) % Neut # (Auto) 5.42 (1.7-7.0) K/uL Lymph # (Auto) 2.18 (0.90-2.90) K/uL [place] # (Auto) 0.50 (0.00-0.90) K/UL Eos # (Auto) 0.16 (0.00-0.50) K/uL Baso # (Auto) 0.02 (0.00-0.30) K/uL Abs Immat Gran (auto) 0.03 (0.00-0.30) K/uL Imm/Tot Granulo (auto) 0.4 % Sodium 139 (135-149) mmol/L Potassium 3.8 (3.6-5.1) mmol/L Chloride 106 (96-114) mmol/L Carbon Dioxide 27 (20-32) mmol/L Anion Gap 6 L (7-15) mEq/L BUN 14 (5-24) mg/dL Creatinine 0.4 L (0.5-1.5) mg/dL Estimated GFR 121 ml/min Glucose 149 H (60-115) mg/dL Calcium 8.8 (8.4-10.6) mg/dL Total Bilirubin 0.5 (0.1-1.5) mg/dL AST 49 H (12-35) U/L ALT 64 H (4-35) U/L Alkaline Phosphatase 74 (40-150) U/L Total Protein 6.6 (6.0-8.3) g/dL Albumin 4.0 (3.3-5.0) g/dL HCG, Qual Negative (Negative) Discharge Plan Discharge Clinical Impression: Fall, Left-sided chest wall pain Patient Disposition: Home, Self-Care Condition: Improved Additional Instructions: Head, cervical spine and chest, abdomen and pelvis CT scan today were all unremarkable. No evidence of fractures noted. Take the oxycodone and Toradol for pain. You can also use Tylenol. Do not take ibuprofen or Aleve or any other NSAIDs while your taking the Toradol as the other same class of drugs. Return to emergency department for new worsening symptoms. Prescriptions: New ketorolac 10 mg tablet 10 mg PO Q6H PRN (Reason: pain) Qty: 20 0RF Rx Instructions: maximum total duration of 5 days from all oral, intranasal, or parenteral formulations oxycodone 5 mg tablet 5 mg PO Q6H PRN (Reason: pain) Qty: 12 0RF No Action albuterol sulfate 90 mcg/actuation aerosol powdr breath activated 2 inh inhalation Q4-6H PRNQty: 1 0RF Follow Up/Referrals: Provider,Not a Local [Primary Care Provider] - Stand Alone Forms: MyHealth Info Instructions
--- NOTE | 2023-09-30 14:32 | CRLHL7_ITS ---
For Patients: As a result of the Century Cures Act, medical imaging exams and procedure reports are released immediately into your electronic medical record. You may view this report before your referring provider. If you have questions, please contact your health care provider. Indication: FALL, HIT HEAD AND NECK, RIB PAIN Technique: Noncontrast axial CT of the cervical spine with coronal and sagittal reformats are provided. Comparison: No prior studies available for comparison at this institution. Findings: The overall stature, alignment of the cervical spine is within normal limits. No fractures. No significant spinal canal stenosis or neural foraminal narrowing. Prevertebral soft tissues, cervical airway, dens and lateral masses are within normal limits. Incidental ossifications noted in the nuchal ligament at the C5 and C6 levels. Moderate opacification of the right mastoid air cells and middle ear canal. Impression: No radiographic evidence of acute osseous injury. Please note that all CT scans at this facility use dose modulation, iterative reconstruction, and/or weight-based dosing when appropriate to reduce radiation dose to as low as reasonably achievable. Dictated by Rich Najera MD @ 09/30/2023 4:34:25 PM (Electronically Signed)
--- NOTE | 2023-09-30 14:32 | CRLHL7_ITS ---
For Patients: As a result of the Century Cures Act, medical imaging exams and procedure reports are released immediately into your electronic medical record. You may view this report before your referring provider. If you have questions, please contact your health care provider. Indication: FALL, HIT HEAD AND NECK, RIB PAIN Technique: CT of the head without contrast. Coronal and sagittal reformats. Bone and soft tissue windows. Comparison: 09/04/2019 Findings: No acute intracranial hemorrhage or extra-axial collection. No evidence of acute cortical infarction. No mass effect or midline shift. Normal cerebral volume. The ventricles are normal in size, shape and contour. There is normal carty and white matter differentiation. Partially empty sella. The orbital contents are normal. No calvarial fractures. No lytic or sclerotic osseous lesions within the calvarium or skull base. Scalp and other imaged soft tissue structures are normal. Moderate opacification of the right mastoid air cells and right middle ear cavity. Paranasal sinuses are well aerated. Impression: 1. No acute intracranial abnormality. 2. Partially empty sella may represent a normal variant but can also be associated with idiopathic intracranial hypertension in the appropriate clinical setting. 3. Moderate opacification of the right mastoid air cells and right middle ear cavity. Please note that all CT scans at this facility use dose modulation, iterative reconstruction, and/or weight-based dosing when appropriate to reduce radiation dose to as low as reasonably achievable. Dictated by Rich Najera MD @ 09/30/2023 4:31:26 PM (Electronically Signed)
[2023-09-30] MEDS: MORPHINE 4 MG/ML INJ IVP (15:15)
--- OUTSIDE RECORDS SUMMARY | 2023-09-30 15:18 | XMS_ITS | Data Portability ---
Author Organization [facility] OFF[facility] Address [address] [place] [address] [place] [address] Assessment No assessment recorded. Plan of Treatment Reminders Order Date Submit Date Provider Last Modified By Organization Details Last Modified Time Details Appointments None recorde d. Lab bacteri al vaginos is + vaginit is panel, vaginal 2022 023 MADELYN Not available 3 15:10:31 HbA1c (hemogl obin A1c), blood 2022 023 MADELYN Not available 3 16:23:40 lipid panel, serum 2022 023 MADELYN Not available 3 16:23:40 TSH, serum or plasma 2022 023 MADELYN Not available 3 16:23:41 fecal occult blood, stool 2022 023 [email or web address] Not available 3 17:05:32 CBC w/ auto diff 2022 023 MADELYN Not available 3 16:23:41 CMP, serum or plasma 2022 023 MADELYN Not available 3 13:25:02 culture , wound 2022 023 [email or web address] Not available 3 18:09:27 culture , aerobic + anaerob ic 2022 023 [email or web address] Not available 3 09:42:15 culture + sensiti vity, unspeci fied specime n 2022 023 [email or web address] Not available 3 09:42:39 BMP, blood 2022 023 MADELYN Not available 15:11:17 BMP, serum or plasma 2022 MADELYN Not available 12:39:15 Referral None recorde d. Procedures None recorde d. Surgeries None recorde d. Imaging MAMMO, screeni ng, bilater al 2022 023 [email or web address] Not available 17:38:52 CT, abdomen + pelvis, w/ contras t 2022 [email or web address] Not available 19:28:15 Medication Orders Zithrom ax Z-Kennedy 250 mg tablet [address], [address], 16:34:26 sulfame thoxazo le 800 mg-trim ethopri m 160 mg tablet [address], [address], 19:02:36 flucona zole 150 mg tablet 2022 023 [facility] [address] [place], [address], 10:56:59 doxycyc line hyclate 100 mg capsule [address], [address], 18:33:53 amoxici llin 500 mg capsule [address], [address], 11:13:45 Patient TargetsNo targets recorded. Patient Instructions Encounter Date Encounter Id Patient Instructions Last Modified By Organization Details Last Modified Time 04/28/2022 [id number] add a cough syrup, call if not better curry Not available 04/29/2022 11:04:53 needs DARIO curry Not available 04/29 11:05:06 12/08/2022 [id number] Start amoxicllin 500 mg 3 times a day for 10 days, abdominal/pelvis CT for the bleeding and left side abdominal pain. Follow up after studies completed to discuss results. [email or web address] Not available 12/08/2022 15:59:25 Reason for Referral None Reported. Results Created Date Observation Date Name Description Value Unit Range Abnormal Flag LastModifiedBy Organization Detail LastModifiedTime 07/25/1907/24/2022 CBC w/ auto diff creatinine 0.69 Not Available Not Available 0 07/28/2022 16:23:41 07/25/19 23 07/24/2022 CBC w/ auto diff ALT 57 high Not Available Not Available 07/17 16:23:41 07/25/19 23 07/24/2022 CBC w/ auto diff A1C hemoglobin 6.0 Not Available Not Available 0 07/28/2022 16:23:41 07/25/19 23 07/24/2022 CBC w/ auto diff total cholesterol 144 Not Available Not Available 07/28/2022 16:23:41 07/25/19 23 07/24/2022 CBC w/ auto diff triglyceride s 100 Not Available Not Available 16:23:41 07/25/19 23 07/24/2022 CBC w/ auto diff HDL 44 Not Available Not Available 07/17 16:23:41 07/25/19 23 07/24/2022 CBC w/ auto diff LDL 80 Not Available Not Available 07/17 16:23:41 07/25/19 23 07/24/2022 CBC w/ auto diff TSH value 1.07 Not Available Not Available 16:23:41 07/25/19 23 07/24/2022 CBC w/ auto diff white blood count 7.8 Not Available Not Available 16:23:41 07/25/19 23 07/24/2022 CBC w/ auto diff hemoglobin 12.5 Not Available Not Available 0 07/28/2022 16:23:41 07/25/19 23 07/24/2022 CBC w/ auto diff platelet count 274 Not Available Not Available 16:23:41 07/25/19 23 07/24/2022 TSH, serum or plasm a creatinine 0.69 Not Available Not Available 0 07/28/2022 16:23:41 07/25/19 23 07/24/2022 TSH, serum or plasm a ALT 57 high Not Available Not Available 07/17 16:23:41 07/25/19 23 07/24/2022 TSH, serum or plasm a A1C hemoglobin 6.0 Not Available Not Available 0 07/28/2022 16:23:41 07/25/19 23 07/24/2022 TSH, serum or plasm a total cholesterol 144 Not Available Not Available 07/28/2022 16:23:41 07/25/19 23 07/24/2022 TSH, serum or plasm a triglyceride s 100 Not Available Not Available 16:23:41 07/25/19 23 07/24/2022 TSH, serum or plasm a HDL 44 Not Available Not Available 07/17 16:23:41 07/25/19 23 07/24/2022 TSH, serum or plasm a LDL 80 Not Available Not Available 07/17 16:23:41 07/25/19 23 07/24/2022 TSH, serum or plasm a TSH value 1.07 Not Available Not Available 16:23:41 07/25/19 23 07/24/2022 TSH, serum or plasm a white blood count 7.8 Not Available Not Available 16:23:41 07/25/19 23 07/24/2022 TSH, serum or plasm a hemoglobin 12.5 Not Available Not Available 0 07/28/2022 16:23:41 07/25/19 23 07/24/2022 TSH, serum or plasm a platelet count 274 Not Available Not Available 16:23:41 07/25/19 23 07/24/2022 lipid panel , serum creatinine 0.69 Not Available Not Available 0 07/28/2022 16:23:40 07/25/19 23 07/24/2022 lipid panel , serum ALT 57 high Not Available Not Available 07/17 16:23:40 07/25/19 23 07/24/2022 lipid panel , serum A1C hemoglobin 6.0 Not Available Not Available 0 07/28/2022 16:23:40 07/25/19 23 07/24/2022 lipid panel , serum total cholesterol 144 Not Available Not Available 07/28/2022 16:23:40 07/25/19 23 07/24/2022 lipid panel , serum triglyceride s 100 Not Available Not Available 16:23:40 07/25/19 23 07/24/2022 lipid panel , serum HDL 44 Not Available Not Available 07/17 16:23:40 07/25/19 23 07/24/2022 lipid panel , serum LDL 80 Not Available Not Available 07/17 16:23:40 07/25/19 23 07/24/2022 lipid panel , serum TSH value 1.07 Not Available Not Available 16:23:40 07/25/19 23 07/24/2022 lipid panel , serum white blood count 7.8 Not Available Not Available 16:23:40 07/25/19 23 07/24/2022 lipid panel , serum hemoglobin 12.5 Not Available Not Available 0 07/28/2022 16:23:40 07/25/19 23 07/24/2022 lipid panel , serum platelet count 274 Not Available Not Available 16:23:40 07/25/19 23 07/24/2022 HbA1c (hemo globi n A1c), blood creatinine 0.69 Not Available Not Available 0 07/28/2022 16:23:40 07/25/19 23 07/24/2022 HbA1c (hemo globi n A1c), blood ALT 57 high Not Available Not Available 07/17 16:23:40 07/25/19 23 07/24/2022 HbA1c (hemo globi n A1c), blood A1C hemoglobin 6.0 Not Available Not Available 0 07/28/2022 16:23:40 07/25/19 23 07/24/2022 HbA1c (hemo globi n A1c), blood total cholesterol 144 Not Available Not Available 07/28/2022 16:23:40 07/25/19 23 07/24/2022 HbA1c (hemo globi n A1c), blood triglyceride s 100 Not Available Not Available 16:23:40 07/25/19 23 07/24/2022 HbA1c (hemo globi n A1c), blood HDL 44 Not Available Not Available 07/17 16:23:40 07/25/19 23 07/24/2022 HbA1c (hemo globi n A1c), blood LDL 80 Not Available Not Available 07/17 16:23:40 07/25/19 23 07/24/2022 HbA1c (hemo globi n A1c), blood TSH value 1.07 Not Available Not Available 16:23:40 07/25/19 23 07/24/2022 HbA1c (hemo globi n A1c), blood white blood count 7.8 Not Available Not Available 16:23:40 07/25/19 23 07/24/2022 HbA1c (hemo globi n A1c), blood hemoglobin 12.5 Not Available Not Available 0 07/28/2022 16:23:40 07/25/19 23 07/24/2022 HbA1c (hemo globi n A1c), blood platelet count 274 Not Available Not Available 16:23:40 07/25/19 23 07/24/2022 CMP, serum or plasm a creatinine 0.69 Not Available Not Available 0 07/25/2022 13:15:47 07/25/19 23 07/24/2022 CMP, serum or plasm a ALT 57 high Not Available Not Available 10/2022 13:15:47 07/25/19 23 07/24/2022 CMP, serum or plasm a A1C hemoglobin 6.0 Not Available Not Available 0 07/25/2022 13:15:47 07/25/19 23 07/24/2022 CMP, serum or plasm a total cholesterol 144 Not Available Not Available 07/25/2022 13:15:47 07/25/19 23 07/24/2022 CMP, serum or plasm a triglyceride s 100 Not Available Not Available 13:15:47 07/25/19 23 07/24/2022 CMP, serum or plasm a HDL 44 Not Available Not Available 10/2022 13:15:47 07/25/19 23 07/24/2022 CMP, serum or plasm a LDL 80 Not Available Not Available 10/2022 13:15:47 07/25/19 23 07/24/2022 CMP, serum or plasm a TSH value 1.07 Not Available Not Available 13:15:47 07/25/19 23 07/24/2022 CMP, serum or plasm a white blood count 7.8 Not Available Not Available 13:15:47 07/25/19 23 07/24/2022 CMP, serum or plasm a hemoglobin 12.5 Not Available Not Available 0 07/25/2022 13:15:47 07/25/19 23 07/24/2022 CMP, serum or plasm a platelet count 274 Not Available Not Available 13:15:47 12/17/19 23 12/16/2022 CT, abdom en + pelvi s, w/ contr ast No observ ation record ed. [email or web address] [facility] [address] [place], [address], 12/18/2022 13:28:02 Result Notes None recorded. Problems Name Status Onset Date Resolution Date Notes Provider Name and Address Organization Details Recorded Time Obesity Active 3 Doyle Zavala MD [address] [place], [address], [employer] 04/29/2022 11:00:43 Asthma Active 3 Tiffany Jacobson NP [address] [place], [address], [facility] 08/18/2022 16:11:50 Notes:Problem: Depressive di sorder Status: Non-Chronic Problem Notes None recorded. Procedures Surgical History None recorded. Imaging Results Imaging Date Name Status LastModified by Organiz ation Details LastModified Time 12/16/2022 CT, abdomen + pelvis, w/ contrast completed [email or web address] [facility] [address] [place], [address], 12/18/2022 13:28:02 Procedure Notes None recorded. Medical Equipment None Reported. Allergies No known drug allergies Medications Name Sig Start Date Stop Date Status Note LastModified by Organization Details LastModified Time amoxicillin 500 mg capsule Take 1 capsule every 8 hours by oral route. 2022 active Not Available Not Available Not Avai lable doxycycline hyclate 100 mg capsule TAKE ONE CAPSULE BY MOUTH TWICE A DAY active Not Available Not Available No t Available cetirizine 10 mg tablet TAKE 1 TABLET EVERY DAY BY ORAL ROUTE. 03/25 completed Not Available Not Available Not Available azithromyci n 250 mg tablet TAKE 2 TABLETS (500 MG) BY MOUTH ONCE DAILY FOR 1 DAY THEN 1 TABLET (250 MG) BY MOUTH ONCE DAILY FOR 4 DAYS active Not Available Not Available No t Available fluconazole 150 mg tablet TAKE ONE TABLET BY MOUTH DIRECTED active Not Available Not Available No t Available sulfamethox azole 800 mg-trimetho prim 160 mg tablet TAKE 1 TABLET BY MOUTH EVERY 12 HOURS active Not Available Not Available No t Available gentamicin 0.3 % eye drops INSTILL 1 DROP INTO AFFECTED EYE(S) EVERY FOUR HOURS DIRECTED 08/28 completed Not Available Not Available Not Available neomycin-po lymyxin-dex ameth 3.5 mg/mL-10,00 0 unit/mL-0.1 % eye drops INSTILL 4 DROPS IN AFFECTED EAR(S) THREE TIMES DAILY DIRECTED 04/29 completed Not Available Not Available Not Available albuterol sulfate HFA 90 mcg/actuati on aerosol inhaler INHALE 2 PUFFS BY MOUTH EVERY 4 TO 6 HOURS NEEDED active Not Available Not Available No t Available Cortisporin -TC 3.3 mg-3 mg-10 mg-0.5 mg/mL ear drops,suspe nsion Instill 4 drops by otic route. 04/29 completed Not Available Not Available Not Available neomycin 3.5 mg-polymyxi n 10,000 unit-hydroc ort 10 mg/mL eye drop,susp INSTILL 4 DROPS IN AFFECTED EAR TWICE A DAY FOR 7 DAYS 03/25 completed Not Available Not Available Not Available naproxen 500 mg tablet TAKE 1 TABLET BY MOUTH TWICE A DAY 03/25 completed Not Available Not Available Not Available amoxicillin 500 mg-potassiu m clavulanate 125 mg tablet 08/28 completed Not Available Not Available Not Available neomycin-po lymyxin-hyd rocort 3.5 mg-10,000 unit/mL-1 % ear drops,susp INSTILL 4 DROPS INTO AFFECTED EAR(S) 3 TIMES PER DAY active Not Available Not Available No t Available Ciprodex 0.3 %-0.1 % ear drops,suspe nsion INSTILL 4 DROPS INTO AFFECTED EAR(S) BY OTIC ROUTE 2 TIMES PER DAY FOR 7 DAYS 10/09 completed Not Available Not Available Not Available ID NOW COVID-19 Test Kit DIRECTED active Not Available Not Available No t Available Vitals Date Recorded Body weight Body temperature Systolic blood pressure Diastolic blood pressure Provider Name and Address Organization Details Last Updated DateTime 04/28/2022 556290.6 4 g 98.5 [degF] 134 mm[Hg] 74 mm[Hg] Doyle Zavala MD [address] [place], [address] , [facility] [employer] [facility] 3 16:34:24 Date Recorded Body height Body mass index (BMI) Body weight Heart rate Systolic blood pressure Diastolic blood pressure Provider Name and Address Organization Details Last Updated DateTime 3 162.56 cm 48.2 kg/m2 819949. 02 g 84 /min 129 mm[Hg] 82 mm[Hg] ELVER FERNANDEZ- [address] [place], [address], [facility] [employer] [facility] 3 15:56:35 Date Recorded Body height Body mass index (BMI) Body weight Body temperature Heart rate Respiratory rate Oxygen saturation Oxygen saturation in Arterial blood by Pulse oximetry Systolic blood pressure Diastolic blood pressure Provider Name and Address Organization Details Last Updated DateTime 3 162.56 cm 48.6 kg/m2 291640. 64 g 97.6 [degF] 84 /min 22 /min 99 % 99 % 137 mm[Hg] 86 mm[Hg] Beverley Quarles [facility] [employer] 3 15:34:51 Social History None recorded. Functional Status None recorded. Mental Status None recorded. Family History Nothing Reported. Medical History No medical history recorded. Gynecological HistoryNo gynecological history recorded. Obstetrics History GPAL:G 0 P 0 0 0 0 Immunizations Vaccine Type Date Status Provider Name and Address Organization Details Recorded Time COVID-19, mRNA, LNP-S, PF, 30 mcg/0.3 mL dose, alma-sucrose 03/27/2021 completed BLANK COCHRAN [address] [place], [address], [facility] 03/27/2021 16:54:05 Past Encounters Encounter ID Performer Location Encounter Start Date Encounter Closed Date Diagnosis/Indication Diagnosis SNOMED-CT Code [id number] Doyle Zavala MD [facility] [address] [place] [phone] 01/10/2020 17:36:43 01/10/2020 19:33:40 Otitis externa 8543920 [id number] Chandler Herrera MD [facility] [address] [place] [address] 08/01/2020 19:05:32 08/01/2020 20:04:06 Allergic conjunctivitis 346527087 Otitis externa 9821444 [id number] Doyle Zavala MD [facility] [address] [place] [phone] 08/28/2020 17:22:12 08/28/2020 19:41:52 Otitis externa [id number] [id number] Doyle Zavala MD [facility] [address] [place] [id number] 09/04/2020 17:28:11 09/04/2020 17:47:44 Acute otitis media 9680309 [id number] Doyle Zavala MD [facility] [address] [place] [id number] 10/09/2020 18:30:25 10/09/2020 18:58:29 Perforation of tympanic membrane 49865336 [facility] [id number] Doyle Zavala MD [facility] [address] [place] [id number] 02/19/2021 17:06:31 02/19/2021 17:36:21 Otitis externa [id number] Doyle Zavala MD [facility] [address] [place] [address] 03/25/2021 15:02:58 03/25/2021 15:28:19 Hearing loss [id number] [id number] BLANK COCHRAN [facility] [address] [place] [id number] 03/27/2021 16:40:13 03/28/2021 11:00:09 Administration of SARS-CoV-2 mRNA vaccine 6820073914 [id number] Doyle Zavala MD [facility] [address] [place] [address] 05/14/2021 19:54:49 05/14/2021 19:58:45 Otitis externa [id number] Doyle Zavala MD [facility] [address] [place] [id number] 04/28/2022 16:04:22 04/28/2022 16:37:59 Cough [id number] [facility] [address] [place] [id number] 07/01/2022 14:51:27 07/01/2022 16:17:23 Adult health examination 380326299 Gynecologi c examination 41260907 Otitis externa 4683700 Screening mammography 24 334580 Vaginitis 13373599 Screening for malignant neoplasm of colon 952835762 Abscess of skin and/or subcutaneous tissue 91375164 [id number] [facility] [address] [place] [phone] 07/08/2022 09:27:49 07/08/2022 11:05:26 Candidiasis of vagina 30530974 Otitis externa 3536764 Abscess of skin and/or subcutaneous tissue 80822995 [id number] [facility] [address] [place] [phone] 07/15/2022 17:15:02 07/15/2022 18:01:53 Abscess of skin and/or subcutaneous tissue 11871709 [id number] ANTOINETTE BARKSDALE MD [facility] [address] [place] [id number] 12/08/2022 15:19:35 12/08/2022 16:03:22 Excessive menstruation with irregular cycle 101241707 Abnormal u terine bleeding 8805249721750 0 Left lower quadrant pain 064996567 Acute righ t otitis media 756041987 Health Concerns Section Related Observation LastModified by Organization Detai ls LastModified Time None Recorded Concern Status LastModified by Organization Details LastModified Time None Recorded Advance Directives Directive None Recorded Payers Encounter Date Sequence Insurance Name Policy Number Policy Dumont Covered Member ID Dumont Member ID Guarantor Name 04/28/2022 SLIDING FEE SCHEDULE - DISCOUNT Sheeba Moore 07/01/2022 [facility] SCREENING [employer]GRAM - [place] [employer] OF [employer] Sheeba Moore [id number] Sheeba Moore 07/08/2022 SLIDING FEE SCHEDULE - DISCOUNT Sheeba Moore 07/15/2022 SLIDING FEE SCHEDULE - DISCOUNT Sheeba Moore 12/08/2022 SLIDING FEE SCHEDULE - DISCOUNT Sheeba Moore Notes Date Note Type Note Provider Name and Address Organization Details Recorded Time 07/01/2022 text/html HPI Notes: Pt presents for [facility] visit, right ear pain, and pain on her bottom. Right ear pain xfor years. +drainage 3 weeks ago. A week ago also had. yellow draining. Also had sob and was seen at [facility]. She had PFTs performed and said she was diagnosed with asthma. She received a albuterol inhaler and she takes this 2-3x/week as she is fearful she will get addicted to it but when specifically asked, she stated she would not use it more if she was not fearful of this. Has been trying to exercise more post-COVID. 47y.o. F presents for [facility] breast health visit Last mammogram date and result: 2-3 years ago Personal history of breast issues or concerns: Lump under right arm axilla Current Breast ROS: denies nipple discharge/itching, rash, change in appearance Family history of breast or ovarian cancer: No Breast self awareness discussed Last pap date/result: 2-3 years ago History of abnormal pap smears: No Gynecologic history: -3 vaginal; 1 casarean LMP: Now Characteristics of period (eg heavy), duration, and frequency: Gynecologic ROS: denies vaginal discharge, itching, odor, irritation, pelvic pain, abnormal bleeding: Has LISSY nixon, ANP-BC [address] [place], [address], [place] [employer] 07/02/2022 11:25:21 07/08/2022 text/html HPI Notes: Too leung called pt with TV interpreting to discuss lab results and f/u on general status. No PFT results ever located in [facility] or [facility]. Overall, she is feeling better. No pain or fluid in her ear anymore. The lesion on her bottom burst and daughter drained most of fluid out. She did not have any side effects to medications. DWIGHT FERNANDEZ [address] [place], [address], [facility] [employer] 07/08/2022 10:46:16 07/15/2022 text/html HPI Notes: Pt presents accompanied by daughters due to worsened abscess under arm. It is quite painful. DWIGHT FERNANDEZ [address] [place], [address], [facility] 07/16/2022 09:09:20 12/08/2022 text/html HPI Notes: Abnor mal Bleeding Reported by patient. Notes: Patient presents with 6 months of heavy and irregular bleeding. Patient never had any time where she was not having regular menstrual bleeding but now she has had bleeding every 2 weeks and it is often very heavy. Her stomach feels bloated and pain is primarily in the left side of the abdomen. She has noticed some increased swelling in the left leg with pain radiating into the left lower back. Patient denies any concerns about . She is not having any fevers. She denies any pain or blood with bowel movements. No blood in her urine. Patient has no history of dysuria or previous urinary tract problems. Patient notes that the pain sometimes gets so severe she has to stop walking and catch her breath. The pain does go into the top part of the leg but has had more pain in the pelvis area for the last 2 days. Ear Pain Brief HPI Reported by patient. Location: right Onset/Timing: started 2years ago; constant pain Quality: shooting pain Severity: no fever Context: no recent URI; no recent trauma Alleviating factors: nothing gives relief Associated Symptoms: no vertigo; no discharge from ear ANTOINETTE BARKSDALE MD [address] [place], [address], [place] - [employer] 12/08/2022 23:40:13 OBGyn Episode No OBEpisode recorded.
--- OUTSIDE RECORDS SUMMARY | 2023-09-30 15:18 | XMS_ITS | Clinical Summary ---
Author Organization [employer] [facility] Address [place], [place] [address] Care Team Providers Care Florist Supplies Salesperson Name Role Phone Reinier Linda MD Primary Care Provider Unavaila ble Allergies No known active allergies Medications Medication Sig Dispensed Refills Start Date End Date Status tobramycin-dexamethas one (TOBRADEX) ophthalmic solution 2 Drops. Two drops to right ear BID X 14 days supply 1 Bottle 0 10/15/2010 Active sertraline (ZOLOFT) 100 mg tablet Take 1/2 tablet daily for 7 days then 1 tablet daily. 30 tablet 1 08/19/2011 Active Active Problems Problem Noted Date Diagnosed Date Hepatitis 03/05/2010 Vitamin D deficiency 02/07/2010 GERD (gastroesophageal reflux disease) 0 Major depression, recurrent 03/23/2009 Resolved Problems Problem Noted Date Diagnosed Date Resolved Date Dysthymic disorder 0 Overview: depression Immunizations Name Administration Dates Next Due Influenza, IIV3 (Age >=3 years) 01/30/2010,02/13 Td (Age >=7 Years) 04/07/1996 Tdap 01/30/2010 Family History Medical History Relation Name Comments Hypertension Mother Other Sister tuberculosis Relation Name Status Comments Mother Sister Social History Tobacco Use Types Packs/Day Years Used Date Smoking Tobacco: Never Smokeless Tobacco: Never Alcohol Use Standard Drinks/Week Comments No 0 (1 standard drink = 0.6 oz pur e alcohol) Social Connections Answer Date Recorded Frequency of Communication with Friends and Fami ly Not on file 02/16/2021 Financial Resource Strain Answer Date R ecorded Difficulty of Paying Living Expenses Not on file 02/16/2021 Difficulty of Paying Living Expenses Not on file 02/16/2021 Sex and Gender Information Value Date Recorded Sex Assigned at Not on file Gender Identity Not on file Sexual Orientation Not on file Obstetrics History Para Term AB IAB SAB Ectopic Multiple Livin g Live Births 5 4 4 1 1 3 Date Outcome GA Total Labor Labor/2nd/3rd Weight Sex Type Anes PTL Keeley A1 A5 Name Clin SAB Term Term Term Term Last Filed Vital Signs Vital Sign Reading Time Taken Comments Blood Pressure 126/83 08/19/2011 1:54 PM CDT Pulse 67 08/19/2011 1:54 PM CDT Temperature 36.9 ??C (98.5 ??F) 10/15/2010 11:33 AM C DT Respiratory Rate 12 01/23/2010 3:13 PM MILK INSPECTOR Oxygen Saturation 98% 01/15/2010 1:31 PM MILK INSPECTOR Inhaled Oxygen Concentration - - Weight 107.5 kg (237 lb) 03/06/2010 1:10 PM MILK INSPECTOR Height 161.3 cm (5' 3.5) 01/30/2010 1:39 PM MILK INSPECTOR Body Mass Index 41.32 01/30/2010 1:39 PM MILK INSPECTOR Plan of Treatment Health Maintenance Due Date Last Done Comments Depression screening for age 12+ 1986 HIV for age 15-65 1989 BMI (ht and wt on same day) for age 18+ 1992 Hepatitis C screening for ag e 18-79 1992 Pap test for age 21-65 01/30/2013 0, 10/08/2005 Colonoscopy through age 75 2019 Mammogram for age 45-75 2019 Tetanus booster 01/31/2020 01/30/2010, 04/07/1996 COVID-19 vaccine series ( season) 2022 Influenza for age 9-49 10/18/2023 0, 02/13/2006 Lipids for age 45-75 07/25/2027 07/24/2022 Tdap Completed 01/30/2010 Pneumococcal series for age 6-64 Aged Out No longer eligible b ased on patient's age to complete this topic Procedures Procedure Name Priority Date/Time Associated Diagnosis Comments LIPID PANEL Routine 07/24/2022 2:10 PM CDT SENIOR TECHNICAL RECRUITER THIN PREP PAP SCREEN IMAGED Routine 01/30/2010 3:47 PM MILK INSPECTOR Screening for malignant neoplasm of the cervix from Last 3 Months or Most Recently Relevant to Health Maintenance Results * LIPID PANEL (07/24/2022 2:10 PM CDT) CHOLESTEROL,TOTAL 144 100 - 199 mg/dL 07/25/2022 11:18 AM T [facility] TRIGLYCERIDES 100 <150 mg/dL 07/25/2022 11:18 AM CDT [facility] HDL CHOLESTEROL 44 >40 mg/dL 11:18 AM CDT [facility] NON-HDL CHOLESTEROL 100 <145 mg/dl 07/25/2022 11:18 AM T [facility] CHOL/HDL RATIO 3.27 <4.50 07/25/2022 11:18 AM T [facility] LDL CHOLESTEROL 80 <=130 mg/dL 07/25/2022 11:18 AM [facility] VLDL CHOLESTEROL 20 <=30 mg/dL 07/25/2022 11:18 AM T [facility] PROVIDER ORDERED STATUS RANDOM 07/25/2022 11:18 AM T [facility] Blood BLOOD SPECIMEN / Unknown 07/24/2022 2:10 PM CDT 07/25/2022 10:53 AM CDT Mariann Crowder NP CHEMISTRY [facility] [address] [place] [address] * pap screen (01/30/2010 3:47 PM MILK INSPECTOR) CYTOLOGY CYTOPATHOLOGY REPORT [facility] Status: Final Status ?[id number] CLINICAL INFORMATION Last Date of LMP ? :last week Last Pap Date ?:2006 Last Pap Result ?:NIL ABN [place]/Bx Past 5 YRS :None Hormone Usage ?:None Menstrual Status ? :Irregular Periods [place]/Bx done today ? :No Additional Information :None given HPV Request ?:HPV if ASCUS SPECIMEN SOURCE ?:Cervical/vagina l ThinPrep Vial, screening SPECIMEN ADEQUACY ?:Satisfactory for evaluation Endocervical component ? present. INTERPRETATION/RES ULT Negative for intraepithelial lesion or malignancy (NIL) Cytology 1st Screener ??:tll Signed by ?:tll This specimen was screened by the FDA approved ThinPrep Imaging System and manually reviewed. NOTE: ??The Pap test is a screening technique, not a diagnostic procedure. ??It is used ??primarily to screen for squamous cancers and precursor lesions. ??Published studies have shown that it is subject to both false negative and false positive results. ??The pap test should not be used as the sole means to diagnose or exclude pre-malignant and malignant lesions. COLLECTED:01/30/10 ? ACCESSIONED: ??01/31/10 ?? SIGNED: ??02/07/10 [facility] PAP [place] CODE NIL [facility] Cervical/Vaginal (Cervical/Vagina l) 01/30/2010 3:47 PM MILK INSPECTOR 01/30/2010 3:46 PM MILK INSPECTOR Mona HUANG PATHOLOGY/CYTOLOGY [facility] INTERNAL ZIP [phone] [address] from Last 3 Months or Most Recently Relevant to Health Maintenance Care Teams Florist Supplies Salesperson Relationship Specialty Start Date End Date Reinier Linda MD PCP - General Family Practice 11/23/14
[2023-09-30 15:25] LABS: Basophils Absolute Auto 0.02 K/uL (0.00-0.30); Basophils Percent Auto 0.2 % (0.0-3.0); Eosinophils Absolute Auto 0.16 K/uL (0.00-0.50); Eosinophils Percent Auto 1.9 % (0.0-7.0); Hematocrit 38.6 % (33.0-51.0); Hemoglobin* 12.6 gm/dL (12.0-16.0); Immature Granulocytes Abs Auto 0.03 K/uL (0.00-0.30); Immature Granulocytes Pct Auto 0.4 %; Lymphocytes Absolute Auto 2.18 K/uL (0.90-2.90); Lymphocytes Percent Auto 26.2 % (20-44); Mean Corpuscular HGB Conc 33 gm/dL (32-36); Mean Corpuscular Hemoglobin 30 pg (26-34); Mean Corpuscular Volume 91 fL (80-100); Monocytes Percent Auto 6.1 % (0.0-11.0); Neutrophils Absolute Auto 5.42 K/uL (1.7-7.0); Neutrophils Percent Auto 65.2 % (42.0-72.0); Platelet Count* 266 K/uL (140-440); RDW Coefficient of Variation % 13.8 % (11.5-15.5); Red Blood Count 4.24 m/uL (4.00-5.20); White Blood Count* 8.32 K/uL (4.50-11.00)
[2023-09-30 15:59] LABS: Chloride* 106 mmol/L (96-114); Potassium* 3.8 mmol/L (3.6-5.1); Slide Review Reflex No; Sodium* 139 mmol/L (135-149)
[2023-09-30 16:02] LABS: Alanine Aminotransferase* 64 U/L (4-35); Alkaline Phosphatase* 74 U/L (40-150); Anion Gap 6 mEq/L (7-15); Aspartate Amino Transferase* 49 U/L (12-35); Bilirubin Total* 0.5 mg/dL (0.1-1.5); Blood Urea Nitrogen* 14 mg/dL (5-24); Carbon Dioxide* 27 mmol/L (20-32); Creatinine* 0.4 mg/dL (0.5-1.5); Estimated Glomerular Filt Rate 121 ml/min; Glucose* 149 mg/dL (60-115); Total Protein* 6.6 g/dL (6.0-8.3)
[2023-09-30 16:03] LABS: Calcium* 8.8 mg/dL (8.4-10.6)
[2023-09-30 16:34] LABS: HCG Qualitative Serum* Negative (Negative)
--- NOTE | 2023-09-30 17:36 | ED.NURSE ---
Patient requesting assistance to pay for medication. Notified MD Mari Crespo. Toradol and Oxycodone are not covered by assistance program with [facility] and [facility]. Handwritten Rx sent with patient for Hydrocodone-APAP sent with patient. Called [facility] and notified them to not fill the Oxycodone Rx. Patient and pharmacy both agree with plan.
== END 2023-09-30 17:35 | disposition home or self-care (01) ==
PROVIDERS: Emergency Provider Student in an Organized Health Care Education/Training Program
DX: R07.89 Other chest pain (principal); W18.2XXA Fall in (into) shower or empty bathtub, initial encounter
CPT/HCPCS: 36415; 70450; 71260; 72125; 74177; 80053; 84703; 85025; 96374; 99283; 99284; 99285; J2270; Q9967

== ENCOUNTER 2023-12-07 09:24 | Emergency (ER) | payer OTHER, SELFPAY ==
[2023-12-07 09:35] VITALS: BP 138/85; PULSE 76; RESP 22; TEMP 37; O2SAT 96; BMI 44.6
--- NOTE | 2023-12-07 10:08 | CRLHL7_ITS ---
For Patients: As a result of the Century Cures Act, medical imaging exams and procedure reports are released immediately into your electronic medical record. You may view this report before your referring provider. If you have questions, please contact your health care provider. INDICATION: Cough TECHNIQUE: 1 view chest radiograph COMPARISON: 05/21/2022 FINDINGS: Devices: None. Lung volumes are low. Diffuse crowding without any focal opacities. No pleural effusion. No pneumothorax. Heart size is normal. IMPRESSION: Low lung volumes. No focal opacities. Dictated by Carrol Shea MD @ 12/07/2023 10:52:26 AM (Electronically Signed)
--- NOTE | 2023-12-07 10:10 | ED.GENADULT ---
HPI - General Adult General Date Seen: 12/07/23 Chief complaint: Cough Stated complaint: trouble breathing, bronchitis Time Seen by Provider: 12/07/23 10:00 Source: patient, RN notes reviewed and old records reviewed Mode of arrival: ambulatory Limitations: language barrier History of Present Illness HPI narrative: Patient is a 48-year-old woman here with her daughter who is serving as an teaching young. She reports a 1-2 week history of cough, sore throat, congestion. No fevers. She has felt short of breath. She has not had chest or back pain. She has had some pain in the right leg on the lateral aspect, no swelling or redness. No history of DVT or PE. She does not smoke. Does noted an underlying history of asthma but has not had an inhaler for quite some time. Cough is occasionally productive of sputum. Denies any other health history or medications. No allergies. Related Data Home Medications ?Medication ?Instructions ?Recorded ?Confirmed No Known Home Medications 12/07/23 12/07/23 Allergies Allergy/AdvReac Type Severity Reaction Status Date / Time No Known Drug Allergies Allergy Verified 12/16/22 11:18 Review of Systems Status of ROS: Reports: 6 or more systems reviewed and unremarkable except as noted in History and below PFSH [facility] Social History Smoking Status: Never smoker Do you use any of these nicotine containing products: None Second hand tobacco smoke exposure: No How often do you have a drink containing alcohol: monthly or less How many standard drinks containing alcohol do you have on a typical day: 1 or 2 How often do you have six or more drinks on one occasion: Never AUDIT-C Alcohol total score: 1 Non-prescribed substance use: denies use service: No Exam Narrative: Exam Narrative: Vital signs as noted above. In general, an alert, well-appearing patient. Breathing easily. Voice is normal. Head: Normocephalic, atraumatic. Eyes: Pupils are equal reactive. Extraocular movements are full. Conjunctivae are normal. ENT: Mucous membranes are moist. Throat is normal. TMs normal bilaterally. Neck: Supple without lymphadenopathy. Heart: Regular rate and rhythm. No murmur or rub. Lungs: Scattered crackles at the right base. No wheezing or increased work of breathing. Extremities: Well perfused. No edema. No calf tenderness. Pulses intact. The right lower lateral leg is normal in appearance, there is no erythema or warmth, no swelling, no tenderness. Neurologic: Patient is alert and oriented to person and place. Speech is fluent. Face is symmetric. Moves all extremities equally. Affect: Normal. Skin: Warm and dry. Well perfused. Const: Vital Signs, click to edit/add: Vital Signs - 24 hr 12/07/23 09:35 Temperature 98.6 F Pulse Rate [Pulse Oximeter] 76 Respiratory Rate 22 Blood Pressure [Ri ght Upper Arm] 138/85 Pulse Oximetry 96 Oxygen Delivery Me thod Room Air Course Course ED Course: Diagnostic criteria include a viral upper respiratory infection, viral versus bacterial pneumonia, bronchitis, among others. I would doubt this represents pulmonary embolism given symptom complex, she rules out by PERC criteria and right lower extremity does not show any evidence consistent with DVT. Will obtain an x-ray to look for pneumonia, viral swab pending. I do not hear any bronchospasm right now so I do not think an neb is going to be useful here today but I do think she should have access to an inhaler for home use. Chest x-ray by my review is negative, final radiology read as below. Based on exam I suspect she may have a developing pneumonia, will treat doxycycline, inhaler provided as well. I do not hear any bronchospasm so I think steroids are likely less useful at this point. Return for worsening respiratory symptoms, high fevers, chills, vomiting etcetera, primary care follow-up if not gradually improving over 7-10 days. Viral swab is negative, discussed with patient and her daughter that symptoms including pneumonia may still be viral and may not improve rapidly. Vital Signs Vital signs: Initial Vital Signs Temperature 98.6 F 12/07/23 09:35 Temperature Source Temporal Artery Scan 12/07/23 09:35 Pulse Rate 76 12/07/23 09:35 Respiratory Rate 22 12/07/23 09:35 Blood Pressure 138/85 12/07/23 09:35 Blood Pressure Mean 102 12/07/23 09:35 Blood Pressure Position Sitting 12/07/23 09:35 Pulse Oximetry 96 12/07/23 09:35 Oxygen Delivery Method Room Air 12/07/23 09:35 Vital Signs Temperature 98.6 F 12/07/23 09:35 Pulse Rate 76 12/07/23 09:35 Respiratory Rate 22 12/07/23 09:35 Blood Pressure 138/85 12/07/23 09:35 Pulse Oximetry 96 12/07/23 09:35 Oxygen Delivery Method Room Air 12/07/23 09:35 Temperature 98.6 F 12/07/23 09:35 Pulse Rate 76 12/07/23 09:35 Respiratory Rate 22 12/07/23 09:35 Blood Pressure 138/85 12/07/23 09:35 Pulse Oximetry 96 12/07/23 09:35 Oxygen Delivery Method Room Air 12/07/23 09:35 Medical Decision Making Lab Data Labs: Lab Results 12/07/23 Range/Units 09:48 SARS-CoV-2 (PCR) Negative SARS-CoV-2 (Negative) Influenza Type A (PCR) Negative PCR FLU A (Negative) Influenza Type B (PCR) Negative PCR FLU B (Negative) RSV (PCR) Negative PCR RSV (Negative) Discharge Plan Discharge Clinical Impression: Pneumonia Patient Disposition: Home, Self-Care Condition: Stable Instructions: Community Acquired Pneumonia (DC) Additional Instructions: Your x-ray today looks okay but I do hear some sounds in your lungs that suggest you have a pneumonia. I am going to treat with an antibiotic. I am also going to prescribe an inhaler which he can use as needed for shortness of breath, wheezing or cough. If you have worsening difficulty breathing, high fevers, vomiting, weakness or other worsening return to the emergency department for re-evaluation. Otherwise, see your primary doctor if not improving gradually over the next 7-10 days. Prescriptions: No Action No Known Home Medications Follow Up/Referrals: Provider,Not a Local [Primary Care Provider] - Stand Alone Forms: [employer] Info Instructions
[2023-12-07 10:37] LABS: PCR FLU A Negative PCR FLU A (Negative); PCR FLU B Negative PCR FLU B (Negative); PCR RSV Negative PCR RSV (Negative); SARS PCR* Negative SARS-CoV-2 (Negative)
--- OUTSIDE RECORDS SUMMARY | 2023-12-07 10:46 | XMS_ITS | Clinical Summary ---
Author Organization [employer] [facility] [employer] Address [place], [place] [address] Care Team Providers Care Training Director Name Role Phone Reinier Linda MD Primary [...] Diagnosed Date Resolved Date Dysthymic disorder 0 Overview (06/05/2006): depression Immunizations Name Administration Dates Next Due [...] DT Respiratory Rate 12 01/23/2010 3:13 PM ONLINE JOURNALIST Oxygen Saturation 98% 01/15/2010 1:31 PM ONLINE JOURNALIST Inhaled Oxygen Concentration - - Weight 107.5 kg (237 lb) 03/06/2010 1:10 PM ONLINE JOURNALIST Height 161.3 cm (5' 3.5) 01/30/2010 1:39 PM ONLINE JOURNALIST Body Mass Index 41.32 01/30/2010 1:39 PM ONLINE JOURNALIST Plan of Treatment Health Maintenance Due Date [...] booster 01/31/2020 01/30/2010, 04/07/1996 COVID-19 vaccine series (2023- season) 2023 Influenza for age 9-49 10/18/2023 0, 02/13/2006 Lipids for age 45-75 07/25/2027 07/24/2022 Tdap Completed 01/30/2010 Pneumococcal series for age 6-64 Aged Out No longer eligible b ased on patient's age to complete this topic Procedures Procedure Name Priority Date/Time Associated Diagnosis Comments LIPID PANEL Routine 07/24/2022 2:10 PM CDT CRANBERRY SORTER THIN PREP PAP SCREEN IMAGED Routine 01/30/2010 3:47 PM ONLINE JOURNALIST Screening for malignant neoplasm of the cervix from Last 3 Months or Most Recently Relevant to Health Maintenance Results * LIPID PANEL (07/24/2022 2:10 PM CDT) CHOLESTEROL,TOTAL 144 100 - 199 mg/dL 07/25/2022 11:18 AM T [facility] TRIGLYCERIDES 100 <150 mg/dL 07/25/2022 11:18 AM T [facility] HDL CHOLESTEROL 44 >40 mg/dL 11:18 AM T [facility] NON-HDL CHOLESTEROL 100 <145 mg/dl 07/25/2022 11:18 AM T [facility] CHOL/HDL RATIO 3.27 <4.50 07/25/2022 11:18 AM T [facility] LDL CHOLESTEROL 80 <=130 mg/dL 07/25/2022 11:18 AM [facility] VLDL CHOLESTEROL 20 <=30 mg/dL 07/25/2022 11:18 AM T [facility] PROVIDER ORDERED STATUS RANDOM 07/25/2022 11:18 AM T [facility] Blood BLOOD SPECIMEN / Unknown 07/24/2022 2:10 PM CDT 07/25/2022 10:53 AM CDT Mariann Crowder NP CHEMISTRY Performing Organization Address City/State/[facility] Co de Phone Number [facility] [address] [place] [phone] * pap screen (01/30/2010 3:47 PM ONLINE JOURNALIST) CYTOLOGY CYTOPATHOLOGY REPORT [facility] Status: Final Status ?[id number] CLINICAL INFORMATION Last Date of LMP ? :last week Last Pap Date ?:2006 Last Pap Result ?:NIL ABN [place]/Bx Past 5 YRS :None Hormone Usage ?:None Menstrual Status ? :Irregular Periods [place]/Bx done today ? :No Additional Information :None [...] COLLECTED:01/30/10 ? ACCESSIONED: ??01/31/10 ?? SIGNED: ??02/07/10 [facility] PAP [place] CODE NIL [facility] Cervical/Vaginal (Cervical/Vagina l) 01/30/2010 3:47 PM ONLINE JOURNALIST 01/30/2010 3:46 PM ONLINE JOURNALIST Mona HUANG PATHOLOGY/CYTOLOGY [facility] INTERNAL ZIP [phone] [address] from Last 3 Months or Most Recently Relevant to Health Maintenance Care Teams Training Director Relationship Specialty Start Date End Date Reinier Linda MD PCP - General Family Practice 11/23/14
== END 2023-12-07 11:01 | disposition home or self-care (01) ==
LOC: ED 10:43
PROVIDERS: Emergency Provider Emergency Medicine
DX: J18.9 Pneumonia, unspecified organism (principal)
CPT/HCPCS: 71045; 87631; 99283; 99284

== ENCOUNTER 2025-01-03 16:54 | Emergency (ER) | payer OTHER, SELFPAY ==
[2025-01-03 17:02] VITALS: BP 155/93; PULSE 92; RESP 18; TEMP 36.4; O2SAT 98; BMI 48.1
--- NOTE | 2025-01-03 17:53 | CRLHL7_ITS ---
For Patients: As a result of the Century Cures Act, medical imaging exams and procedure reports are released immediately into your electronic medical record. You may view this report before your referring provider. If you have questions, please contact your health care provider. Indication: Chest pain. Technique: Chest 2 views. Comparison: Chest radiograph 12/07/2023. Findings/Impression: Cardiovascular and mediastinum: Heart size is normal. Unremarkable mediastinum. Lungs and pleural spaces: Lung volumes are mildly low without focal consolidation. No pleural effusion or pneumothorax. Bones and soft tissues: No significant findings. Dictated by Cecilia Fernandes MD @ 01/03/2025 6:10:11 PM (Electronically Signed)
--- NOTE | 2025-01-03 18:00 | ED.GENADULT ---
HPI - General Adult General Date Seen: 01/03/25 Chief complaint: Chest Pain Stated complaint: Elevated heartrate, chest pain Time Seen by Provider: 01/03/25 17:39 Source: patient and family (Daughter is interpreting) Mode of arrival: ambulatory Limitations: no limitations History of Present Illness HPI narrative: Patient is a 49-year-old female presenting to the emergency department for chest pain. Chest pain has been going on off for past few weeks. She is describing 2 different types of chest pain. The 1 she seems were concerned about is she will have episodes of feeling like she is choking. This will him pressure randomly and is unrelated to eating. She states she feel like her lungs are spasming. This occurs randomly with no obvious cause. She states they will happen at night and will wake her up from sleep and she will start coughing. She states this occurred once maybe a week or 2 before the current 2 week episode. It was not as persistent. Unsure home many it occurs occurs a day. She is also having intermittent chest pain radiating from her left shoulder down to her left upper chest. States this is a shock like pain. This is also occurring randomly. Denies any recent heavy lifting. No history of blood clot she states. She sees her primary care provider yearly and is not on any current medications. Saw her primary care provider this morning for her arthritis pain and was told to come to the emergency department due to the chest pain. She states the shoulder and chest pain does not feel similar to her arthritis pain. Denies fevers, chills, weakness, numbness, abdominal pain, headache, lightheadedness, dizziness. Related Data Home Medications ?Medication ?Instructions ?Recorded ?Confirmed naproxen 500 mg tablet 500 mg PO BID 01/03/25 01/03/25 terbinafine HCl 250 mg tablet 250 mg PO DAILY 01/03/25 01/03/25 Previous Rx's ?Medication ?Instructions ?Recorded celecoxib 100 mg capsule 200 mg (2 x 100 mg) PO QDAY #60 02/15/24 caps celecoxib 100 mg capsule 100 mg PO Q12H PRN pain #60 caps 10/26/24 Allergies Allergy/AdvReac Type Severity Reaction Status Date / Time No Known Drug Allergies Allergy Verified 03/01/24 09:15 Review of Systems Status of ROS: Reports: 10 or more systems reviewed and unremarkable except as noted in History and below PFSH PFS Surgical History History of section ?Z98.891 - History of uterine scar from previous surgery (ICD-10) History of bladder surgery ?Z98.890 - Other specified postprocedural states (ICD-10) Hx of appendectomy ?Z90.49 - Acquired absence of other specified parts of digestive tract (ICD-10) Hx of tonsillectomy ?Z90.89 - Acquired absence of other organs (ICD-10) Social History Smoking Status: Never smoker Do you use any of these nicotine containing products: None Second hand tobacco smoke exposure: No How often do you have a drink containing alcohol: monthly or less How many standard drinks containing alcohol do you have on a typical day: 1 or 2 How often do you have six or more drinks on one occasion: Never AUDIT-C Alcohol total score: 1 Non-prescribed substance use: denies use service: No Exam Narrative: Exam Narrative: Const: Well-nourished, Well-developed, in mild distress Eyes: PERRL, no conjunctival injection, and symmetrical lids HENT: Atraumatic external nose and ears. Moist mucous membranes. Neck: Symmetric, trachea midline, No thyromegaly. CVS: RRR, No murmurs or gallops. Peripheral pulses 2+ and equal in all extremities RESP: Unlabored respiratory effort. Clear to auscultation bilaterally. GI: Nontender/Nondistended, No rebound or guarding. MSK:Extremities w/o deformity, Normal Active ROM, tenderness to left upper chest that she states reproduces her chest pain exactly Skin: Warm, Dry. No rashes or lesions. Neuro: Normal Muscle tone, No focal neurological deficits. Psych: Awake, Alert, & Oriented x3. Appropriate mood and affect. Const: Vital Signs, click to edit/add: Vital Signs - 24 hr 01/03/25 17:02 01/03/25 18:39 Temperature 97.5 F L Pulse Rate [Right Pulse Oximeter] 92 78 Respiratory Rate 18 18 Blood Pressure [Ri ght Upper Arm] 155/93 H 149/80 H Pulse Oximetry 98 97 Oxygen Delivery Me thod Room Air Room Air Course Vital Signs Vital signs: Initial Vital Signs Temperature 97.5 F L 01/03/25 17:02 Temperature Source Temporal Artery Scan 01/03/25 17:02 Pulse Rate 92 01/03/25 17:02 Respiratory Rate 18 01/03/25 17:02 Blood Pressure 155/93 H 01/03/25 17:02 Blood Pressure Mean 113 H 01/03/25 17:02 Blood Pressure Position Sitting 01/03/25 17:02 Pulse Oximetry 98 01/03/25 17:02 Oxygen Delivery Method Room Air 01/03/25 17:02 Vital Signs Temperature 97.5 F L 01/03/25 17:02 Pulse Rate 92 01/03/25 17:02 Respiratory Rate 18 01/03/25 17:02 Blood Pressure 155/93 H 01/03/25 17:02 Pulse Oximetry 98 01/03/25 17:02 Oxygen Delivery Method Room Air 01/03/25 17:02 Temperature 97.5 F L 01/03/25 17:02 Pulse Rate 78 01/03/25 18:39 Respiratory Rate 18 01/03/25 18:39 Blood Pressure 149/80 H 01/03/25 18:39 Pulse Oximetry 97 01/03/25 18:39 Oxygen Delivery Method Room Air 01/03/25 18:39 Medical Decision Making MDM Narrative Medical decision making narrative: Patient is a 49-year-old female presenting to the emergency department for chest pain. The differential diagnosis of chest pain is broad and includes common etiologies such as musculoskeletal strain, GERD, pneumonia, etc. More serious etiologies considered include PE, coronary artery disease, pneumothorax, aortic dissection, aortic aneurysm. Will do a D-dimer to look for signs of pulmonary embolism. Her vital signs are otherwise stable and my concern for your dissection or aortic aneurysm are low. Will do EKG and troponin to look for signs of cardiac abnormalities. With the shortness of breath will do a BNP to look for signs of CHF. Chest were ordered to look for signs of pneumonia or pneumothorax. I do believe she is having 2 different causes of chest pain. The shocking sensation ago some her left shoulder to left upper chest is reproducible with palpation and seems more likely musculoskeletal. I am not really sure what is causing her other symptoms. When happened tonight does seem like it could be GERD related but she states she has no burning sensation and does not have a metallic taste in her mouth when she wakes up. CBC, BMP, viral swabs, magnesium all ordered. She can walk EKG interpreted by myself shows no acute concerning abnormalities. Chest x-ray interpreted by myself and the radiologist showed no acute concerning abnormalities. Troponin within normal limits. Concerning symptoms have been for over 2 weeks do not believe bili troponin is necessary. D-dimer within normal limits in PE can not be ruled out. BNP is only 29. No signs of heart failure. Rest of her labs showed no concerning findings. Viral swabs within normal limits. At this time I do not know what is causing her symptoms but have ruled out any emergent issues. I do believe the pain from his shoulder is musculoskeletal in nature. Her other pain could be gastric reflux and they will try some qhyn-[id number] reflux medicine. I informed her to follow up with her primary care provider. She is agreeable to this plan. Lab Data Labs: Lab Results 01/03/25 Range/Units 18:31 WBC 9.10 (4.50-11.00) K/uL RBC 4.29 (4.00-5.20) m/uL Hgb 12.9 (12.0-16.0) gm/dL Hct 38.9 (33.0-51.0) % MCV 91 (80-100) fL MCH 30 (26-34) pg MCHC 33 (32-36) gm/dL RDW Coeff of Hina 13.8 (11.5-15.5) % Plt Count 278 (140-440) K/uL Neut % (Auto) 66.1 (42.0-72.0) % Lymph % (Auto) 24.7 (20-44) % [place] % (Auto) 6.8 (0.0-11.0) % Eos % (Auto) 2.0 (0.0-7.0) % Baso % (Auto) 0.3 (0.0-3.0) % Neut # (Auto) 6.01 (1.7-7.0) K/uL Lymph # (Auto) 2.25 (0.90-2.90) K/uL [place] # (Auto) 0.60 (0.00-0.90) K/UL Eos # (Auto) 0.18 (0.00-0.50) K/uL Baso # (Auto) 0.03 (0.00-0.30) K/uL Abs Immat Gran (auto) 0.01 (0.00-0.30) K/uL Imm/Tot Granulo (auto) 0.1 % D-Dimer Quant (PE/DVT) 0.27 (0.00-0.50) ug/ml Sodium 140 (135-149) mmol/L Potassium 3.7 (3.6-5.1) mmol/L Chloride 102 (96-114) mmol/L Carbon Dioxide 27 (20-32) mmol/L Anion Gap 11 (7-15) mEq/L BUN 23 (7-30) mg/dL Creatinine 0.5 (0.5-1.5) mg/dL Estimated Creat Clear 116.24 Estimated GFR 114 ml/min Glucose 116 H (60-115) mg/dL Calcium 8.9 (8.4-10.6) mg/dL Magnesium 1.8 (1.5-2.6) mg/dL Troponin I < 0.01 (0.01-0.04) ng/mL NT-Pro-B Natriuret Pep 29 (See Note) pg/mL SARS-CoV-2 (PCR) Negative SARS-CoV-2 (Negative) Influenza Type A (PCR) Negative PCR FLU A (Negative) Influenza Type B (PCR) Negative PCR FLU B (Negative) RSV (PCR) Negative PCR RSV (Negative) Imaging Data Chest x-ray: Attestation: I have reviewed the pertinent imaging results. Radiologist's impression: Cardiovascular and mediastinum: Heart size is normal. Unremarkable mediastinum. Lungs and pleural spaces: Lung volumes are mildly low without focal consolidation. No pleural effusion or pneumothorax. Bones and soft tissues: No significant findings. Dictated by Cecilia Fernandes MD @ 01/03/2025 6:10:11 PM ECG Data Attestation: I personally reviewed and interpreted this ECG as follows: Prior ECG tracings: not available for review Interpretation: Sore normal sinus rhythm with a rate of 80 beats per minute, normal intervals, normal axis, no ST or T-wave abnormalities. Discharge Plan Discharge Clinical Impression: Atypical chest pain Patient Disposition: Home, Self-Care Condition: Stable Instructions: Noncardiac Chest Pain (ED) Additional Instructions: I believe the sharp chest pain going from her shoulder to your chest is musculoskeletal in nature. Try taking [id number] NSAID such as ibuprofen and is naproxen for this pain. Your other pain could be related to gastric reflux so I recommend to try [id number] medication for that. Overall though I do recommend following up with your primary care provider again she for further workup. Return to emergency department for new or worsening symptoms. Prescriptions: No Action celecoxib 100 mg capsule 200 mg PO QDAY Qty: 60 5RF terbinafine HCl 250 mg tablet 250 mg PO DAILY naproxen 500 mg tablet 500 mg PO BID celecoxib 100 mg capsule 100 mg PO Q12H PRN (Reason: pain) Qty: 60 2RF Follow Up/Referrals: David Ortega MD [Primary Care Provider, Family Practice] Stand Alone Forms: [employer] Info Instructions
[2025-01-03 18:39] VITALS: BP 149/80; PULSE 78; RESP 18; O2SAT 97
[2025-01-03 18:41] LABS: Hematocrit* 38.9 % (33.0-51.0); Hemoglobin* 12.9 gm/dL (12.0-16.0); Immature Granulocytes Abs Auto 0.01 K/uL (0.00-0.30); Immature Granulocytes Pct Auto 0.1 %; Lymphocytes Absolute Auto 2.25 K/uL (0.90-2.90); Mean Corpuscular HGB Conc 33 gm/dL (32-36); Mean Corpuscular Hemoglobin 30 pg (26-34); Mean Corpuscular Volume 91 fL (80-100); RDW Coefficient of Variation % 13.8 % (11.5-15.5); Red Blood Count* 4.29 m/uL (4.00-5.20); White Blood Count* 9.10 K/uL (4.50-11.00)
[2025-01-03 18:48] LABS: Slide Review Reflex No
[2025-01-03 18:56] LABS: Chloride* 102 mmol/L (96-114); Potassium* 3.7 mmol/L (3.6-5.1); Sodium* 140 mmol/L (135-149)
[2025-01-03 18:59] LABS: Anion Gap 11 mEq/L (7-15); Blood Urea Nitrogen* 23 mg/dL (7-30); Calcium* 8.9 mg/dL (8.4-10.6); Carbon Dioxide* 27 mmol/L (20-32); Creatinine* 0.5 mg/dL (0.5-1.5); Est. Creatinine Clearance* 116.24; Estimated Glomerular Filt Rate 114 ml/min; Glucose* 116 mg/dL (60-115)
[2025-01-03 19:01] LABS: D Dimer Quantitative* 0.27 ug/ml (0.00-0.50)
[2025-01-03 19:14] LABS: NT Pro B Type NatriureticPept* 29 pg/mL (See Note)
[2025-01-03 19:24] LABS: PCR FLU A Negative PCR FLU A (Negative); PCR FLU B Negative PCR FLU B (Negative); PCR RSV Negative PCR RSV (Negative); SARS PCR* Negative SARS-CoV-2 (Negative)
== END 2025-01-03 19:51 | disposition home or self-care (01) ==
PROVIDERS: Emergency Provider Student in an Organized Health Care Education/Training Program; PCP Family Medicine
DX: R07.89 Other chest pain (principal); R00.0 Tachycardia, unspecified
CPT/HCPCS: 36415; 71046; 80048; 83735; 83880; 84484; 85025; 85379; 87631; 93005; 99284

== ENCOUNTER 2025-01-25 15:34 | Outpatient (CLI) | payer OTHER, SELFPAY ==
--- NOTE | 2025-01-25 15:45 | CRLHL7_ITS ---
For Patients: As a result of the Century Cures Act, medical imaging exams and procedure reports are released immediately into your electronic medical record. You may view this report before your referring provider. If you have questions, please contact your health care provider. INDICATION: Left lower extremity edema TECHNIQUE: Ultrasound venous duplex lower left extremity. Compression venous exam was performed using warren-scale, color Doppler, and spectral Doppler analysis. COMPARISON: None. FINDINGS: Sonographic imaging demonstrates the left common femoral, deep femoral, superficial femoral, popliteal, posterior tibial and greater saphenous and the contralateral right common femoral veins to be fully compressible with normal color Doppler blood flow. IMPRESSION: Normal left lower extremity venous ultrasound, no sign of deep venous thrombosis. Dictated by Jono Vu MD @ 01/25/2025 4:36:28 PM (Electronically Signed)
== END 2025-01-25 15:35 | disposition home or self-care (01) ==
LOC: US 15:35
PROVIDERS: PCP Family Medicine; Visit Provider Family Medicine
DX: R60.0 Localized edema (principal)
CPT/HCPCS: 93971; T1013